=== PATIENT | female | born 1970 | race Caucasian/White ===

== ENCOUNTER 2024-04-24 07:36 | Outpatient (CLI) | payer OTHER, SELFPAY ==
[2024-04-24 08:36] LABS: Basophils Percent Auto 0.6 % (0.2-1.2); Eosinophils Percent Auto 0.8 % (0-4.4); Hematocrit 40.5 % (37.0-47.0); Hemoglobin 13.4 g/dL (12.0-15.0); Immature Granulocyte Absolute 0.01 K/mm3 (0.00-0.031); Immature Granulocyte Percent A 0.2 % (0-0.5); Lymphocytes Absolute Auto 1.78 K/mm3 (0.9-3.2); Lymphocytes Percent Auto 34.8 % (18.3-44.2); Mean Corpuscular HGB Conc 33.1 g/dl (32-36); Mean Corpuscular Hemoglobin 30.3 pg (26-34); Mean Corpuscular Volume 91.6 fl (80-100); Mean Platelet Volume 11.4 fl (7.4-10.4); Monocytes Absolute Auto 0.3 K/mm3 (0.1-0.6); Monocytes Percent Auto 6.7 % (2.6-8.5); Neutrophils Absolute Auto 2.9 K/mm3 (1.3-6.7); Neutrophils Percent Auto 56.9 % (45.5-73.1); Platelet Count Result 232 k/mm3 (150-375); Red Blood Count 4.42 M/mm3 (4.2-5.4); Red Cell Distribution Width 13.3 % (11.5-14.5); White Blood Count 5.1 K/mm3 (4.5-10.0)
[2024-04-24 08:45] LABS: Alanine Aminotransferase 21 U/L (6-35); Albumin Level 4.3 g/dL (3.5-5.1); Alkaline Phosphatase 80 U/L (38-126); Aspartate Amino Transferase 27 U/L (14-36); Bilirubin,Total 0.3 mg/dL (0.2-1.3); Blood Urea Nitrogen 18 mg/dL (7-17); Carbon Dioxide 28 mmol/L (22-30); Chloride 97 mmol/L (98-107); Cholesterol 165 mg/dL (0-200); Estimated Glomerular Filt Rate > 60; Glucose 90 mg/dL (65-110); HDL Direct 44 mg/dL; Potassium 3.8 mmol/L (3.4-5.0); Triglycerides 177 mg/dL (<150)
[2024-04-24 08:55] LABS: LDL Cholesterol Direct 85 mg/dL
[2024-04-24 09:18] LABS: Hemoglobin A1C 5.4 % (<5.7)
[2024-04-24 09:20] LABS: Anion Gap 14 mmol/L (4-12); Sodium 139 mmol/L (137-145)
[2024-04-24 09:39] LABS: Vitamin D 25 Hydroxy 31.2 ng/mL
[2024-04-24 09:52] LABS: Thyroid Stimulating Hormone Reflex 0.777 uIU/mL (0.465-4.68)
== END 2024-04-24 07:37 | disposition home or self-care (01) ==
PROVIDERS: PCP Nurse Practitioner; Visit Provider Nurse Practitioner
DX: Z00.00 Encounter for general adult medical examination without abnormal findings (principal); R42 Dizziness and giddiness; I10 Essential (primary) hypertension; R73.03 Prediabetes; Z13.29 Encounter for screening for other suspected endocrine disorder; E66.01 Morbid (severe) obesity due to excess calories; Z68.41 Body mass index [BMI] 40.0-44.9, adult; Z13.220 Encounter for screening for lipoid disorders
CPT/HCPCS: 36415; 80053; 80061; 82306; 82607; 82746; 83036; 84443; 85025

== ENCOUNTER 2024-08-30 02:00 | Emergency (ER) | payer OTHER, SELFPAY ==
[2024-08-30 02:05] VITALS: BP 140/93; PULSE 100; RESP 22; TEMP 36.4; O2SAT 100
[2024-08-30 02:15] VITALS: BP 129/62; PULSE 80
[2024-08-30 02:16] VITALS: BP 126/84; PULSE 85
[2024-08-30] MEDS: ONDANSETRON INJ 4 MG/2 ML VIAL IV PUSH (02:22)
[2024-08-30] MEDS: SODIUM CHLORIDE 0.9% IV 1,000 ML 999 ML IV CONT ×2 (02:22→03:02)
--- NOTE | 2024-08-30 02:26 | PC.NURSE ---
Patient wristband would not scan but patient name and birthday verified before meds were given. Patient did also request a BSC. BSC brought to room and patient able to use BSC without assist. Call light within reach.
[2024-08-30 02:29] LABS: Basophils Absolute Auto 0.1 K/mm3 (0.0-0.1); Basophils Percent Auto 0.4 % (0.2-1.2); Eosinophils Absolute Auto 0.1 K/mm3 (0-0.3); Eosinophils Percent Auto 0.6 % (0-4.4); Hematocrit 47.3 % (37.0-47.0); Hemoglobin 15.8 g/dL (12.0-15.0); Immature Granulocyte Absolute 0.06 K/mm3 (0.00-0.031); Immature Granulocyte Percent A 0.4 % (0-0.5); Lymphocytes Absolute Auto 2.09 K/mm3 (0.9-3.2); Lymphocytes Percent Auto 12.3 % (18.3-44.2); Mean Corpuscular HGB Conc 33.4 g/dl (32-36); Mean Corpuscular Hemoglobin 30.2 pg (26-34); Mean Corpuscular Volume 90.3 fl (80-100); Mean Platelet Volume 11.2 fl (7.4-10.4); Monocytes Absolute Auto 0.7 K/mm3 (0.1-0.6); Monocytes Percent Auto 4.2 % (2.6-8.5); Neutrophils Percent Auto 82.1 % (45.5-73.1); Platelet Count Result 308 k/mm3 (150-375); Red Blood Count 5.24 M/mm3 (4.2-5.4); Red Cell Distribution Width 14.1 % (11.5-14.5)
[2024-08-30 02:39] LABS: Alanine Aminotransferase 18 U/L (6-35); Albumin Level 4.8 g/dL (3.5-5.1); Alkaline Phosphatase 117 U/L (38-126); Anion Gap 17 mmol/L (4-12); Aspartate Amino Transferase 26 U/L (14-36); Bilirubin,Total 0.8 mg/dL (0.2-1.3); Blood Urea Nitrogen 21 mg/dL (7-17); Calcium 9.7 mg/dL (8.4-10.2); Carbon Dioxide 20 mmol/L (22-30); Chloride 105 mmol/L (98-107); Estimated CRCL calculation 90 ml/min; Estimated Glomerular Filt Rate > 60; Glucose 141 mg/dL (65-110); Lipase 69 U/L (23-300); Potassium 4.5 mmol/L (3.4-5.0); Sodium 142 mmol/L (137-145)
--- NOTE | 2024-08-30 03:01 | ED.GENADULT ---
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 Denies any recent illness including any URI symptoms, body aches, fevers or chills. She also denying any abdominal pain. No additional symptoms or concerns at this time. Related Data Allergies Allergy/AdvReac Type Severity Reaction Status Date / Time Sulfa (Sulfonamide Allergy Intermediate Hives Verified 08/30/24 02:12 Antibiotics) carbamazepine (From Tegretol) AdvReac Intermediate Other Verified 08/30/24 02:13 topiramate (From Topamax) AdvReac Intermediate Other Verified 08/30/24 02:13 nortriptyline AdvReac Unknown Verified 08/30/24 02:13 Review of Systems Review of Systems: All systems are reviewed and are negative unless stated otherwise in the HPI. Exam Narrative: General: Alert, awake, afebrile, in no acute distress. HEENT: PERRL, no rhinorrhea, no post nasal drip, oropharynx clear. Neck: Trachea midline, no JVD, no lymphadenopathy. Cardiovascular: Regular rate and rhythm, no murmurs, rubs or gallops, no peripheral edema. Respiratory: Clear to auscultation bilaterally, no tachypnea, no wheezing, no rhonchi, no rubs, no respiratory distress. Abdomen: Soft, nontender, nondistended, no rebound, no guarding, no peritoneal signs. Musculoskeletal: No joint swelling or deformity, normal muscle tone. Skin: No rashes or petechia, no signs of infection. Psychiatric: Alert and oriented, normal behavior and judgment for situation. Neurological: Alert and oriented to person, place, and time. Follows all commands. No focal deficits, speech is clear and fluent. Course Vital Signs Vital signs: Vital Signs Temperature 97.6 F 08/30/24 02:05 Pulse Rate 100 08/30/24 02:05 Respiratory Rate 22 H 08/30/24 02:05 Blood Pressure 140/93 H 08/30/24 02:05 Pulse Oximetry 100 08/30/24 02:05 Oxygen Delivery Room Air 08/30/24 02:05 Temperature 97.6 F 08/30/24 02:05 Pulse Rate 85 08/30/24 02:16 Respiratory Rate 22 H 08/30/24 02:05 Blood Pressure 126/84 08/30/24 02:16 Pulse Oximetry 100 08/30/24 02:05 Oxygen Delivery Room Air 08/30/24 02:05 Medical Decision Making MDM Narrative Medical decision making narrative: The patient was evaluated by myself in the emergency department. History is obtained from patient who is an independent historian and physical exam was performed. External medical records were reviewed at this time. IV was established and pertinent tests were ordered. Patient was administered 4 mg IV Zofran and 2 L IV fluid bolus with normal saline. Laboratory results obtained revealing a leukocytosis of 17, otherwise unremarkable. Viral swabs negative for COVID/RSV/influenza. Differential diagnosis considerations include gastroenteritis, acute viral syndrome, food poisoning, dehydration, electrolyte derangements. Comorbidities impacting this visit include none. I have evaluated and discussed social determinants of health with the patient that could potentially impact subsequent diagnosis and treatment plans. On repeat assessment of the patient, reevaluation revealed that the patient is doing well and is in no acute distress. Patient symptoms have improved since she arrived to our emergency department. Repeat vital signs were all reviewed and noted to be stable. Differential diagnosis and treatment plan were discussed with the patient at bedside. Patient agrees with discussion and after shared medical decision making agrees with discharge. All questions were answered to the patient's satisfaction. Patient will follow up with her PCP in 3-5 days. Script for Zofran was sent to patient's pharmacy to to use as needed for nausea/vomiting. Patient was provided with strict return precautions and instructed to return to the emergency department if any new or worsening symptoms develop. The patient was discharged in stable condition. Vital Signs Vital Signs: Vital Signs Temperature 97.6 F 08/30/24 02:05 Pulse Rate 100 08/30/24 02:05 Respiratory Rate 22 H 08/30/24 02:05 Blood Pressure 140/93 H 08/30/24 02:05 Pulse Oximetry 100 08/30/24 02:05 Oxygen Delivery Room Air 08/30/24 02:05 Temperature 97.6 F 08/30/24 02:05 Pulse Rate 85 08/30/24 02:16 Respiratory Rate 22 H 08/30/24 02:05 Blood Pressure 126/84 08/30/24 02:16 Pulse Oximetry 100 08/30/24 02:05 Oxygen Delivery Room Air 08/30/24 02:05 Lab Data 08/30/24 02:14 08/30/24 02:14 Labs: Lab Results 08/30/24 Range/Units 02:14 WBC 17.0 H (4.5-10.0) K/mm3 RBC 5.24 (4.2-5.4) M/mm3 Hgb 15.8 H (12.0-15.0) g/dL Hct 47.3 H (37.0-47.0) % MCV 90.3 (80-100) fl MCH 30.2 (26-34) pg MCHC 33.4 (32-36) g/dl RDW 14.1 (11.5-14.5) % Plt Count 308 (150-375) k/mm3 MPV 11.2 H (7.4-10.4) fl Immature Gran % (Auto) 0.4 (0-0.5) % Neut % (Auto) 82.1 H (45.5-73.1) % Lymph % (Auto) 12.3 L (18.3-44.2) % Barbour % (Auto) 4.2 (2.6-8.5) % Eos % (Auto) 0.6 (0-4.4) % Baso % (Auto) 0.4 (0.2-1.2) % Lymph # (Auto) 2.09 (0.9-3.2) K/mm3 Barbour # (Auto) 0.7 H (0.1-0.6) K/mm3 Eos # (Auto) 0.1 (0-0.3) K/mm3 Baso # (Auto) 0.1 (0.0-0.1) K/mm3 Abs Immat Gran (auto) 0.06 H (0.00-0.031) K/mm3 Absolute Neuts (auto) 14.0 H (1.3-6.7) K/mm3 Absolute Nucleated RBC 0.000 (0.0-0.012) K/mm3 Nucleated RBC % 0.0 (0.0-0.2) % Sodium 142 (137-145) mmol/L Potassium 4.5 (3.4-5.0) mmol/L Chloride 105 (98-107) mmol/L Carbon Dioxide 20 L (22-30) mmol/L Anion Gap 17 H (4-12) mmol/L BUN 21 H (7-17) mg/dL Creatinine 0.81 (0.7-1.0) mg/dL Estim Creat Clear Calc 90 ml/min Estimated GFR > 60 (59 - ) Glucose 141 H (65-110) mg/dL Calcium 9.7 (8.4-10.2) mg/dL Magnesium 2.0 (1.6-2.3) mg/dL Total Bilirubin 0.8 (0.2-1.3) mg/dL AST 26 (14-36) U/L ALT 18 (6-35) U/L Alkaline Phosphatase 117 (38-126) U/L Total Protein 8.0 (6.3-8.2) g/dL Albumin 4.8 (3.5-5.1) g/dL Lipase 69 (23-300) U/L Influenza A (RT-PCR) Negative (Negative) Influenza B (RT-PCR) Negative (Negative) RSV (RT-PCR) Negative (Negative) SARS-CoV-2 RNA (RT-PCR) Negative (Negative) Discharge Plan Discharge Clinical Impression: Food poisoning, Leukocytosis Patient Disposition: Home, Self-Care Condition: Improved Instructions: Food Poisoning (ED) Additional Instructions: Please follow-up with your family doctor within the next 3-5 days. Return to the emergency department if any new or worsening symptoms develop. Take the prescribed Zofran as needed for nausea/vomiting. Your white blood cell count was elevated today at 17 which could be reactive, however, this should be rechecked with your primary care physician. Patient Language: Setswana Prescriptions: New ondansetron 4 mg tablet,disintegrating 4 mg PO Q8H PRN (Reason: nausea and vomiting) Qty: 10 0RF Follow-up/Referrals: Edison,Ludivina Carlos NP [Primary Care Provider] - 3 Days Time of Disposition: 03:22
[2024-08-30 03:05] LABS: Influenza A QL RT-PCR Negative (Negative); Influenza B QL RT-PCR Negative (Negative); RSV RNA, RT-PCR Negative (Negative); SARS-CoV-2 RNA PCR Negative (Negative)
--- NOTE | 2024-08-30 03:07 | PC.NURSE ---
Patient given ice chips upon request and for PO challenge.
[2024-08-30 03:53] VITALS: BP 126/84; PULSE 85; RESP 18; O2SAT 100
--- OUTSIDE RECORDS SUMMARY | 2024-09-02 11:18 | XMS_ITS | Patient Health Summary ---
Author Organization [facility] Address [address] [place] [address] Care Team Providers Care Nursing Home Director Name Role Phone Raheem Sanchez MD Unavailable [phone] Ludivina Hogan Primary Care Provider Note from [facility],non-owned Affiliates and Associated Physician Practices is amultiple site organization consisting of ambulatory clinics and hospital sitesin [place], [place], [place] and [place]. This disclosure is being madepursuant to the Care Everywhere program and may not contain all information available regarding this patient. Last updated 18.[facility] Allergies * Cefdinir(Diarrhea) * Nortriptyline * Sulfa Drugs * Carbamazepine(Dizziness) * Topiramate Medications * Be aware that medications may not be up to date on this document. Alwaysverify current medications with the patient. * rizatriptan (MAXALT) 10 MG tablet Take 10 mg by mouth once as needed for Migraine. * lamoTRIgine (LAMICTAL) 100 MG tablet(Started 03/26/2010) Take 100 mg by mouth once daily * escitalopram (LEXAPRO) 10 MG tablet Take 20 mg by mouth once daily * lisinopril (PRINIVIL; ZESTRIL) 10 MG tablet(Started 10/02/2017) Take 20 mg by mouth once daily for blood pressure 3 refills left * propranolol (INDERAL) 20 MG tablet(Started 04/20/2018) Take 20 mg by mouth * psvkujkvku-jvvkclpoorwlu-hxvgdvbw (FIORICET) 50-300-40 MG capsule(Started 10/01/2017) Take 1 capsule by mouth * baclofen (LIORESAL) 10 MG tablet(Started 07/11/2018) Take 10 mg by mouth 3 times daily as needed 3 refills left * ALPRAZolam (XANAX) 0.5 MG tablet(Started 09/16/2018) TAKE 1 TABLET BY MOUTH AT EVERY BEDTIME NEEDED FOR SLEEP * raNITIdine (ZANTAC) 150 MG capsule(Started 09/23/2018) TAKE 1 CAPSULE (150 MG TOTAL) BY MOUTH 2 (TWO) TIMES DAILY FOR 30 DAYS. 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 Migraine 07/11/2008 Resolved Problems Problem Noted Date Diagnosed Date Resolved Date Screening for condition 07/11/200804/11 Seizure disorder 07/11/2008 04/29/2009 Social History Tobacco Use Types Packs/Day Years Used Date Smoking Tobacco: Never Smokeless Tobacco: Never Sex and Gender Information Value Date Recorded Sex Assigned at Not on file Gender Identity Not on file Sexual Orientation Not on file Last Filed Vital Signs Vital Sign Reading Time Taken Comments Blood Pressure 134/84 10/30/2018 10:53 AM CDT Pulse - - Temperature - - Respiratory Rate - - Oxygen Saturation - - Inhaled Oxygen Concentration - - Weight 118.8 kg (262 lb) 10/30/2018 10:53 AM CDT Height 170.2 cm (5' 7 ) 10/30/2018 10:53 AM CDT Body Mass Index 41.04 10/30/2018 10:53 AM CDT Procedures * PAP IG LB RFLX HPV HR ASCU RFLX 16,18(Performed 10/30/2018) Performed for Pap smear, as part of routine gynecological examination * PAP IG LB RFLX HPV HR ASCU RFLX 16,18(Performed 09/06/2016) Performed for Well woman exam * HPV DNA PROBE HIGH RISK(Performed 09/06/2016) Performed for Well woman exam * PAP IG LB RFLX HPV HR ASCU RFLX 16,18(Performed 08/18/2015) Performed for Well female exam with routine gynecological exam * MAMMOGRAPHY ORDER(Performed 08/15/2015) * MAMMO BILAT SCREENING(Performed 08/15/2014) * PAP IG LB RFLX HPV HR ASCU RFLX 16,18(Performed 06/22/2014) Performed for Routine gynecological examination * PAP IG LB RFLX HPV HR ASCU RFLX 16,18(Performed 06/19/2013) Performed for Routine gynecological examination * PAP IG LB RFLX HPV HR ASCU RFLX 16,18(Performed 06/05/2012) Performed for Routine gynecological examination * MAMMO BILAT SCREENING(Performed 06/03/2012) Performed for Breast cancer screening * PAP IG LB RFLX HPV HR ASCU RFLX 16,18(Performed 05/31/2011) Performed for Routine gynecological examination * PAP IG RFLX HPV ASCU(Performed 04/17/2010) Performed for Routine Gynecological Examination * MAMMO BILAT SCREENING(Performed 06/01/2009) * PAP IG RFLX HPV ASCU(Performed 04/29/2009) Performed for Routine Gynecological Examination * PAP IG RFLX HPV ASCU(Performed 04/28/2008) Results * PAP IG LB RFLX HPV HR ASCU RFLX 16,18 (10/30/2018 11:08 AM CDT) Only the most recent of7 resultswithin the time period is included. Diagnosis [facility] INSURANCE BILL Comment:NEGATIVE FOR INTRAEP ITHELIAL LESION OR MALIGNANCY. Specimen Adequacy [facility] INSURANCE BILL Comment:Satisfactory for arabella luation. No endocervical component is identified. Clinician Provided ICD10 [facility] INSURANCE BILL Comment:Z01.419 Performed by [facility] INSURANCE BILL Comment:Leonardo Rossi totechnologist (ASCP) Comment . [facility] INSURANCE BILL Note [facility] INSURANCE BILL Comment: The Pap smear is a screening test designed to aid in the detection of premalignant and malignant conditions of the uterine cervix. ??It is not a diagnostic procedure and should not be used as the sole means of detecting cervical cancer. ??Both false-positive and false-negative reports do occur. ? . IGLBP CPT Code Automation [facility] INSURANCE BILL Comment: This liquid based ThinPrep(R) pap test was screened with the use of an image guided system. Note [facility] INSURANCE BILL Comment: The HPV DNA reflex criteria were not met with this specimen result therefore, no HPV testing was performed. ? . PART OF UTERINE CERVIX / Unknown 10/30/2018 11:08 AM CDT 10/30/2018 Narrative [facility] INSURANCE BILL - 11/03/2018 1:10 PM CDT No. of containers..01 ThinPrep Vial Resulting Agency Comment [facility] [address] ??[place] [id number] Raheem Sanchez MD LAB - PATHOLOGY/CYTO LOGY ORDERABLES [facility] INSURANCE BILL [address] [place] [address] * HPV DNA PROBE HIGH RISK (09/06/2016 11:29 AM SALES TECHNICIAN HOME THEATER) Human papillomavirus High Risk Negative Negative [facility] INSURANCE BILL Comment: This high-risk HPV test detects thirteen high-risk types (16/18/31/33/35/39/45/51/52/56/58/59/68) without differentiation. ?. 09/06/2016 11:2 9 AM SALES TECHNICIAN HOME THEATER 09/06/2016 Narrative [facility] INSURANCE BILL - 09/11/2016 5:11 PM SALES TECHNICIAN HOME THEATER No. of containers..01 CYTYC Thin Prep Vial Resulting Agency Comment [facility] [place] ??[place]ACK [id number] Raheem Sanchez MD LAB - MICROBIOLOGY O RDERABLES [facility] INSURANCE BILL [address] [place] [address] * MAMMOGRAPHY ORDER (08/15/2015) Anatomical Region Laterality Modality Other Scanned Document MAMMO ORDERABLES * MAMMO SCREENING DIGITAL IMAGE BILAT (08/15/2014) Only the most recent of3 resultswithin the time period is included. Anatomical Region Laterality Modality Breast Bilateral Other Raheem Sanchez MD MAMMO ORDERABLES * PAP SMEAR IG RFLX HPV ASCU (PO REF LAB) (04/17/2010 2:56 PM CDT) Only the most recent of3 resultswithin the time period is included. Diagnosis [facility] ACCOUNT BILL Comment:NEGATIVE FOR INTRAEP ITHELIAL LESION AND MALIGNANCY. Specimen Adequacy [facility] ACCOUNT BILL Comment: Satisfactory for evaluation. ??Endocervical and/or squamous metaplastic cells (endocervical component) are present. Clinician Provided ICD9 [facility] ACCOUNT BILL Comment:V72.31 ; Routine spring repairer helper hand ecological examination Performed by [facility] ACCOUNT BILL Comment:Sheron Cristina Cytot echnologist (ASCP) Comment . [facility] ACCOUNT BILL Note [facility] ACCOUNT BILL Comment: The Pap smear is a screening test designed to aid in the detection of premalignant and malignant conditions of the uterine cervix. ??It is not a diagnostic procedure and should not be used as the sole means of detecting cervical cancer. ??Both false-positive and false-negative reports do occur. ? . IGLBP CPT Code Automation [facility] ACCOUNT BILL Comment: This liquid based ThinPrep(R) pap test was screened with the use of an image guided system. Reflex [facility] ACCOUNT BILL Comment: The HPV DNA reflex criteria were not met with this specimen result therefore, no HPV testing was performed. ? . MICROSCOPIC CYTOLOGIC EXAMINATION OF SMEAR OF SPECIMEN FROM FEMALE GENITAL TRACT PREPARED USING PAPANICOLAOU TECHNIQUE / Unknown 04/17/2010 2:56 PM CDT 04/17/2010 9:11 PM CDT Narrative [facility] ACCOUNT BILL - 04/18/2010 8:09 PM CDT Source.............Cervical;Endocervical No. of containers..01 CYTYC Thin Prep Vial Resulting Agency Comment [facility] [place] [address] [facility] ??[place] [id number] Raheem Sanchez MD LAB - PATHOLOGY/CYTO LOGY ORDERABLES [facility] ACCOUNT BILL Care Teams Nursing Home Director Relationship Specialty Start Date End Date Raheem Sanchez MD PCP - OBGYN 07/11/08 Ludivina Hogan PCP - General Nurse Practitioner 10/30/18
--- OUTSIDE RECORDS SUMMARY | 2024-09-02 11:18 | XMS_ITS | Clinical Summary ---
Author Organization [facility] Address [address] [place] [address] Care Team Providers Care Job Service Consultant Name Role Phone Raheem Sanchez MD Unavailable [phone] Ludivina Hogan Primary Care Provider [phone] Source Comments [facility],non-owned Affiliates and Associated Physician Practices is amultiple site organization consisting of ambulatory clinics and hospital sitesin [place], [place], [place] and [place]. This disclosure is being madepursuant to the Care Everywhere program and may not contain all information available regarding this patient. Last updated 18.[facility] Allergies Active Allergy Reactions Criticality Noted Date Comments Cefdinir Diarrhea 06/22/2014 Nortriptyline 08/18/2015 Sulfa Drugs 07/11/2008 Carbamazepine Dizziness 06/22/2014 Topiramate 06/22/2014 Medications * Be aware that medications may not be up to date on this document. Alwaysverify current medications with the patient. Medication Sig Dispensed Refills Start Date End Date Status rizatriptan (MAXALT) 10 MG tablet Take 10 mg by mouth once as needed for Migraine. Active lamoTRIgine (LAMICTAL) 100 MG tablet Take 100 mg by mouth once daily 03/26/2010 Active escitalopram (LEXAPRO) 10 MG tablet Take 20 mg by mouth once daily Active lisinopril (PRINIVIL; ZESTRIL) 10 MG tablet Take 20 mg by mouth once daily for blood pressure 3 10/02/2017 Active propranolol (INDERAL) 20 MG tablet Take 20 mg by mouth 04/20/2018 Activ e butalbital-acetami nophen-caffeine (FIORICET) 50-300-40 MG capsule Take 1 capsule by mouth 10/01/2017 Active baclofen (LIORESAL) 10 MG tablet Take 10 mg by mouth 3 times daily as needed 3 07/11/2018 Active ALPRAZolam (XANAX) 0.5 MG tablet TAKE 1 TABLET BY MOUTH AT EVERY BEDTIME NEEDED FOR SLEEP 0 09/16/2018 Active raNITIdine (ZANTAC) 150 MG capsule TAKE 1 CAPSULE (150 MG TOTAL) BY MOUTH 2 (TWO) TIMES DAILY FOR 30 DAYS. 3 09/23/2018 Active ondansetron, disintegrating, (ZOFRAN ODT) 4 MG tablet Take 4 mg by mouth 09/16/2018 Active HYDROcodone-acetam inophen (NORCO) 5-325 MG tablet Take 1 tablet by mouth 05/13/2018 Active levonorgestrel-eth inyl estradiol (ALESSE; LEVLITE; AVIANE; LUTERA; LESSINA; SRONYX) 0.1-20 MG-MCG tabletIndications: Dysfunctional Uterine Bleeding Take 1 tablet by mouth once daily Reasons: Dysfunctional Bleeding From the Uterus 3 packet 3 10/30/2018 Active Active Problems Problem Noted Date Diagnosed Date Hypertension 10/01/2017 Uterine myoma 05/31/2011 Overview (05/31/2011): Small fibroid seen during [facility] Migraine 07/11/2008 Resolved Problems Problem Noted Date Diagnosed Date Resolved Date Screening for condition 07/11/200804/11 Overview (05/11/2015): Adult Abstraction Problem List Screening Pap Smear: Result: 04/27/2008 Mammogram: Result: Not avail in chart Seizure disorder 07/11/2008 04/29/2009 Family History Medical History Relation Name Comments Hypertension Father Relation Name Status Comments Father Social History Tobacco Use Types Packs/Day Years [...] Mass Index 41.04 10/30/2018 10:53 AM CDT Plan of Treatment Health Maintenance Due Date Last Done Comments COLOGUARD (AGES 45-75) - COLON CA SCREENING 1972 COLON MONITORING 1972 COLONOSCOPY - COLON CA SCREENING 1972 CT COLONOGRAPHY - COLON CA SCREENING 1972 Colorectal Cancer Screening 1972 FIT - COLON CA SCREENING 1972 FLEX SIG - COLON CA SCREENING 1972 LIPID TESTING 1972 HIV SCREENING 1987 HEPATITIS C SCREENING 05/26/1990 DTAP/TDAP/TD VACCINES (1 - Tdap) 1991 HEPATITIS B VACCINE (1 of 3 - 19+ 3-dose series) 1991 MAMMOGRAM 08/15/2017 08/15/2015, 12/2014, 06/03/2012, Additional history exists SCREENING FOR DIABETES 10/30/2018 PAP with HPV 09/06/2021 09/06/2016 PNEUMOCOCCAL VACCINE 50+ (1 of 1 - PCV) 2022 ZOSTER VACCINE (1 of 2) 2022 COVID-19 VACCINE (1 - 2023- season) 2024 INFLUENZA VACCINE (#1) 2024 05/11/2018 DEPRESSION SCREENING 08/11/2024 HIB VACCINE Aged Out No longer eligi ble based on patient's age to complete this topic HPV VACCINE Aged Out No longer eligi ble based on patient's age to complete this topic MENINGOCOCCAL (Group B) VACCINE Aged Out No longer eligible based on patient's age to complete this topic MENINGOCOCCAL VACCINE Aged Out No june al eligible based on patient's age to complete this topic PNEUMOCOCCAL VACCINE Aged Out No long er eligible based on patient's age to complete this topic Procedures Procedure Name Priority Date/Time Associated Diagnosis Comments HPV DNA PROBE HIGH RISK Routine 09/06/2016 11:29 AM BUTTERMAKER HELPER Well woman exam MAMMOGRAPHY ORDER Routine 08/15/2015 from Last 3 Months or Most Recently Relevant to Health Maintenance Results * HPV DNA PROBE HIGH RISK (09/06/2016 11:29 AM BUTTERMAKER HELPER) Human papillomavirus High Risk Negative Negative [facility] INSURANCE BILL Comment: This high-risk HPV test detects thirteen high-risk types (16/18/31/33/35/39/45/51/52/56/58/59/68) without differentiation. ?. 09/06/2016 11:2 9 AM BUTTERMAKER HELPER 09/06/2016 Narrative [facility] INSURANCE BILL - 09/11/2016 5:11 PM BUTTERMAKER HELPER No. of containers..01 CYTYC Thin Prep Vial Resulting Agency Comment [facility] [address] [place] ??[place] [id number] Raheem Sanchez MD [facility] Performing Organization Address City/State/[facility] Co de Phone Number [facility] INSURANCE BILL [address] [place] [address] * MAMMOGRAPHY ORDER (08/15/2015) Anatomical Region Laterality Modality Other Scanned Document MAMMO ORDERABLES from Last 3 Months or Most Recently Relevant to Health Maintenance Care Teams Job Service Consultant Relationship Specialty Start Date End Date Raheem Sanchez MD PCP - OBGYN 07/11/08 MiloLudivina henry PCP - General Nurse Practitioner 10/30/18
--- OUTSIDE RECORDS SUMMARY | 2024-09-02 11:18 | XMS_ITS | Referral Summary ---
Author Organization [facility] Address [address] [place] [address] Care Team Providers Care Conditioning Coach Name Role Phone Raheem Sanchez MD Unavailable [phone] Ludivina Hogan Primary Care Provider [phone] Source Comments [facility],non-owned Affiliates and Associated Physician Practices is amultiple site organization consisting of ambulatory clinics and hospital sitesin [place], [place], [place] and [place]. This disclosure is being madepursuant to the Care Everywhere program and may not contain all information available regarding this patient. Last updated 18.[facility] Allergies Active Allergy Reactions Criticality Noted Date [...] avail in chart Seizure disorder 07/11/2008 04/29/2009 Social History Tobacco [...] 10/30/2018 10:53 AM CDT Plan of Treatment Not on file Procedures Procedure Name Priority Date/Time Associated Diagnosis Comments HPV DNA PROBE HIGH RISK Routine 09/06/2016 11:29 AM PHARMACY DELIVERY DRIVER Well woman exam MAMMOGRAPHY ORDER Routine 08/15/2015 from Last 3 Months or Most Recently Relevant to Health Maintenance Results * HPV DNA PROBE HIGH RISK (09/06/2016 11:29 AM PHARMACY DELIVERY DRIVER) Human papillomavirus High Risk Negative Negative [facility] INSURANCE BILL Comment: This high-risk HPV test detects thirteen high-risk types (16/18/31/33/35/39/45/51/52/56/58/59/68) without differentiation. ?. 09/06/2016 11:2 9 AM PHARMACY DELIVERY DRIVER 09/06/2016 Narrative [facility] INSURANCE BILL - 09/11/2016 5:11 PM PHARMACY DELIVERY DRIVER No. of containers..01 CYTYC Thin Prep Vial Resulting Agency Comment [facility] [address] ??Harry [place] [id number] Raheem Sanchez MD LAB - MICROBIOLOGY O RDERABLES Performing Organization Address City/State/[facility] Co de Phone Number [facility] INSURANCE BILL [address] [place] [address] * MAMMOGRAPHY ORDER (08/15/2015) Anatomical Region Laterality Modality Other Scanned Document MAMMO ORDERABLES from Last 3 Months or Most Recently Relevant to Health Maintenance Care Teams Conditioning Coach Relationship Specialty Start Date End Date Raheem Sanchez MD PCP - OBGYN 07/11/08 Ludivina Hogan PCP - General Nurse Practitioner 10/30/18
--- OUTSIDE RECORDS SUMMARY | 2024-09-02 11:19 | XMS_ITS | Encounter Summary ---
Author Organization [facility] Address [address] [place] [address]. [place] [address] [place] [address] Care Team Providers Care Hands Assembler Name Role Phone Ludivina Hogan KADEN Primary Care Provider [phone] Zay Altman MD Unavailable [phone] Akbar Bailey MD Unavailable [phone] Encounter Details Date Type Department Care Team (Late st Contact Info) Description 04/06/2020 Prep for Procedure [facility] [address] [place] [address] Adilson Nguyen MD [address] [place], [place] [address] Social History Tobacco Use Types Packs/Day Years Used Date Smoking Tobacco: Never Smokeless Tobacco: Never Alcohol Use Standard Drinks/Week Comments Yes 0 (1 standard drink = 0.6 oz pure alcohol) occasional, infrequent glass of wine PHQ-2 Answer Date Recorded PHQ-2 Score 0 03/20/2020 Education Answer Date Recorded What is the highest level of school you have completed or the highest degree you have received? Associate degree: academic program 06/09/2018 Comments No Sex and Gender Information Value Date Recorded Sex Assigned at Female 08/24/2024 8:58 AM WILDLAND FIREFIGHTER Legal Sex Female 7:09 PM CDT Gender Identity Not on file Sexual Orientation Not on file Occupation Industry Job Start Date Job End Date Registered Nurse Not on file Not on file Not on file COVID-19 Exposure Response Date Recorded In the last month, have you been in contact with someone who was confirmed or suspected to have Coronavirus / COVID-19? Yes 04/06/2020 8:14 AM CDT documented as of this encounter Functional Status * RETIRED Are you deaf or do you have serious difficulty hearing Answer Date of Assessment Author Status No 12/17/2018 12:38 PM CDT Acti ve * RETIRED Are you blind or do you have serious difficulty seeing, even when wearing glasses? Answer Date of Assessment Author Status No 12/17/2018 12:38 PM CDT Acti ve * Do you have serious difficulty walking or climbing stairs? Answer Date of Assessment Author Status Yes 12/17/2018 12:38 PM CDT Estefania Alicia RN Active * Do you have difficulty dressing or bathing? Answer Date of Assessment Author Status No 12/17/2018 12:38 PM CDT Estefania Alicia RN Active * Because of a physical, mental, or emotional condition, do you have difficulty doing errands alone such as visiting a doctor's office or shopping? Answer Date of Assessment Author Status No 12/17/2018 12:38 PM CDT Estefania Alicia RN Active documented as of this encounter Mental Status * Because of a physical, mental, or emotional condition, do you have serious difficulty concentrating, remembering, or making decisions? Answer Entry Date Author Status No 12/17/2018 12:40 PM BRET Estefania Alicia RN Active documented in this encounter Plan of Treatment Upcoming Encounters Date Type Department Care Team (Late st Contact Info) Description 08/30/2025 8:30 AM WILDLAND FIREFIGHTER Office Visit [facility], [facility] [address] [place], [place] [id number] Seymour Pino MD [facility]. [facility] [address] [place], [place] [id number] documented as of this encounter Results * PRE-SURGICAL/PRE-PROCEDURE CORONAVIRUS (COVID 19) (04/08/2020 12:48 PM CDT) CORONAVIRUS SARS COV 2 PCR (RESP) NOT DETECTED NOT DETECTED 04/09/2020 3:06 PM CDT [facility] Comment: A Not Detected (negative) test result for this test means that SARS- CoV-2 RNA was not present in the specimen above the limit of detection. A negative result does not rule out the possibility of COVID-19 and should not be used as the sole basis for treatment or patient management decisions. ??If COVID-19 is still suspected, based on exposure history together with other clinical findings, re-testing should be considered in consultation with public health authorities. Laboratory test results should always be considered in the context of clinical observations and epidemiological data in making a final diagnosis and patient management decisions. Please review the Fact Sheets and FDA authorized labeling available for health care providers and patients using the following websites: https://www.iVideosongs.Plinga/home/Covid-19/HCP/NAAT/fact-sheet2 https://www.iVideosongs.Plinga/home/Covid-19/Patients/NAAT/ fact-sheet2 This test has been authorized by the FDA under an Emergency Use Authorization (EUA) for use by authorized laboratories. Due to the current public health emergency, [facility] is receiving a high volume of samples from a wide variety of swabs and media for COVID-19 testing. In order to serve patients during this public health crisis, samples from appropriate clinical sources are being tested. Negative test results derived from specimens received in non-commercially manufactured viral collection and transport media, or in media and sample collection kits not yet authorized by FDA for COVID-19 testing should be cautiously evaluated and the patient potentially subjected to extra precautions such as additional clinical monitoring, including collection of an additional specimen. Methodology: ??Nucleic Acid Amplification Test (NAAT) includes PCR or TMA Additional information about COVID-19 can be found at the [facility] website: www.BuyWithMe.Plinga/Covid19. Test performed at [facility] [place] [address] [place], [place] ??[address] Director: FRITZ CHEN DO,MPH NASOPHARYNGEAL SWAB / Unknown 04/08/2020 12:48 PM CDT us Adilson Nguyen MD MICROBIOLOGY - GENERAL ORDERABL ES Final Result [facility] [address] [place] [address], documented in this encounter Visit Diagnoses Diagnosis Preop examination- Primary Preoperative examination, unspecified documented in this encounter Additional Health Concerns Infection Onset Date Last Indicated Resolved Time COVID-19 Rule Out 04/08/2020 04/08/2020 04/09/2020 3:06 PM CDT COVID-19 Rule Out 06/09/2020 06/09/2020 06/12/2020 3:50 PM WILDLAND FIREFIGHTER COVID-19 Rule Out 04/10/2021 04/10/2021 04/10/2021 10:13 AM CDT COVID-19 Rule Out 04/10/2021 04/10/2021 04/11/2021 1:15 PM CDT documented as of this encounter Care Teams Hands Assembler Relationship Specialty Start Date End Date Ludivina Hogan APNP [address] [place] [address] PCP - General NURSE PRACTITIONER 10/07/17 Zay Altman MD [address] [place] [address] Surgeon NEUROLOGICAL SURGERY 12/09/18 Akbar Bailey MD [address] [place] [address] Consulting Physician Neurology Psychiatry 12/09/18 documented as of this encounter
--- OUTSIDE RECORDS SUMMARY | 2024-09-02 11:19 | XMS_ITS | Encounter Summary ---
Author Organization [facility] Address [facility] [facility] [place] [address] [place] [address] Care Team Providers Care Helmet Hat Puncher Name Role Phone Ludivina Hogan Primary Care Provider [phone] Zay Altman MD Unavailable [phone] Akbar Bailey MD Unavailable [phone] Encounter Details Date Type Department Care Team (Latest Contact Info) Description 06/16/[address] [facility] , Kathrine Capone MD Social History Tobacco Use Types Packs/Day Years Used Date Smoking Tobacco: Never Smokeless Tobacco: Never Alcohol Use Standard Drinks/Week Comments Yes 0 (1 standard drink = 0.6 oz pur e alcohol) occasional Education Answer Date Recorded What is the highest level of school you have completed or the highest degree you have received? Associate degree: academic program 06/09/2018 Comments No Sex and Gender Information Value Date Recorded Sex Assigned at Female 08/24/2024 8:58 AM AUTO TECHNICIAN MECHANIC Legal Sex Female 7:09 PM CDT Gender Identity Not on file Sexual Orientation Not on file Occupation Industry Job Start Date Job End Date Registered Nurse Not on file Not on file Not on file documented as of this encounter Plan of Treatment Upcoming Encounters Date Type Department Care Team (Late st Contact Info) Description 08/30/2025 8:30 AM AUTO TECHNICIAN MECHANIC Office Visit [facility], [address] [address] Seymour Pino MD [facility]. [facility] [address] [place] [address] documented as of this encounter Visit Diagnoses Not on filedocumented in this encounter Additional Health Concerns Infection Onset Date Last Indicated Resolved Time COVID-19 Confirmed 12/16/2019 12/16/2019 0 12:32 AM CDT COVID-19 Rule Out 12/16/2019 12/16/2019 12/16/2019 11:49 AM CDT COVID-19 Rule Out 04/08/2020 04/08/2020 04/09/2020 3:06 PM CDT COVID-19 Rule Out 06/09/2020 06/09/2020 06/12/2020 3:50 PM AUTO TECHNICIAN MECHANIC COVID-19 Rule Out 04/10/2021 04/10/2021 04/10/2021 10:13 AM CDT COVID-19 Rule Out 04/10/2021 04/10/2021 04/11/2021 1:15 PM CDT documented as of this encounter Care Teams Helmet Hat Puncher Relationship Specialty Start Date End Date Ludivina Hogan APNP [address] [place] [address] PCP - General NURSE PRACTITIONER 10/07/17 Zay Altman MD [address] [place] [address] Surgeon NEUROLOGICAL SURGERY 12/09/18 Akbar Bailey MD [address] [facility] [place] [address] Consulting Physician Neurology Psychiatry 12/09/18 documented as of this encounter
--- OUTSIDE RECORDS SUMMARY | 2024-09-02 11:19 | XMS_ITS | Encounter Summary ---
Author Organization [facility] Address [address] [place] [address]. [place] [address] [place] [address] Care Team Providers Care Stock Preparer Name Role Phone Ludivina Hogan Primary Care Provider [phone] Zay Altman MD Unavailable [phone] Akbar Bailey MD Unavailable [phone] Encounter Details Date Type Department Care Team (Late st Contact Info) Description 12/05/2022 [employer] Message Enc [facility] - [place] [address] [place] [address] Ludivina Hogan APNP [address] [place] [address] Zoey Social History Tobacco Use Types Packs/Day Years Used Date Smoking Tobacco: Never Smokeless Tobacco: Never Comments:na Alcohol Use Standard Drinks/Week Comments Yes 0 (1 standard drink = 0.6 oz pure alcohol) occasional, infrequent glass of wine PHQ-2 Answer Date Recorded PHQ-2 Score - If the patient scores above 3, please move on to questions 3-9 0 2022 Education Answer Date Recorded What is the highest level of school you have completed or the highest degree you have received? Associate degree: academic program 06/09/2018 Comments No Sex and Gender Information Value Date Recorded Sex Assigned at Female 08/24/2024 8:58 AM EPIC APPLICATION COORDINATOR Legal Sex Female 7:09 PM CDT Gender Identity Not on file Sexual Orientation Not on file Occupation Industry Job Start Date Job End Date Registered Nurse Not on file Not on file Not on file documented as of this encounter Functional Status [...] Author Status Yes 12/17/2018 12:38 PM CDT Estfeania Alicia RN Active * Do you have [...] Date Author Status No 12/17/2018 12:40 PM CDT Estefania Alicia RN Active documented in this encounter Progress Notes * Kimberly Milton CMA - 12/05/2022 11:44 AM CDT Noted. documented in this encounter Plan of Treatment Upcoming Encounters Date Type Department Care Team (Late st Contact Info) Description 08/30/2025 8:30 AM EPIC APPLICATION COORDINATOR Office Visit [facility], [place] [address] [place] [address] Seymour Pino MD [facility]. [place] [address] [place] [address] documented as of this encounter Visit Diagnoses Not on filedocumented in this encounter Additional Health Concerns Assessment Noted Time PHQ-9 Depression Total Score: 3 05/30/20 22 2:53 PM CDT documented as of this encounter Care Teams Stock Preparer Relationship Specialty Start Date End Date Ludivina Hogan APNP [address] [place] [address] PCP - General NURSE PRACTITIONER 10/07/17 Zay Altman MD [address] [place] [address] Surgeon NEUROLOGICAL SURGERY 12/09/18 Akbar Bailey MD [address] [place] [address] Consulting Physician Neurology Psychiatry 12/09/18 documented as of this encounter
--- OUTSIDE RECORDS SUMMARY | 2024-09-02 11:19 | XMS_ITS | Patient Health Record ---
Author Organization [facility] Address [address] [facility] [address] [place] [address] Care Team Providers Care Warp Picker Name Role Phone Ludivina Bond Primary Care Provider Unavail able Sarina Rome Unavailable [phone] Dennis Link Unavailable [phone] Billy Thena Unavailable [phone] Allergies Allergen (clinical drug ingredient) Drug/Non Drug Allergy documented on EMR Reaction Allergy Type Onset Date Status nortriptyline Nortriptyline HCl Unknown Drug Allergy Active carbamazepine TEGretol Unknown Drug Allergy Act cassie topiramate Topamax Unknown Drug Allergy Active Substance with sulfonamide structure and antibacterial mechanism of action (substance) Sulfa Antibiotics Unknown Drug Allergy Active Results Component Value Reference Range Notes UDT Reviewed date:03/09/2024 05:31:53 PM Interpretation: Performing Lab: Notes/Report: THC NEG 0 - 50 ng/ml Cocaine NEG 0 - 300 ng/ml Amphetamine NEG 0 - 1000 ng/ml Buprenorphine (BUP) NEG 0 - 10 ng/ml Secobarbital (Bar) NEG 0 - 300 ng/ml Oxazepam (BZO) NEG 0 - 300 ng/ml 4-unawabqpht-2,1-caifdrrl-8,3-diphenylpyrrolidine (SELIN P) NEG 0 - 300 ng/ml Methamphetamine (MET) NEG 0 - 1000 ng/ml Methylenedioxymethamphetamine (MDMA) NEG 0 - 500 ng/ml Morphine (MOP 300/NBA0246) NEG 0 - 300 ng/ml Methadone (MTD) NEG 0 - 300 ng/ml Phencyclidine (PCP) NEG 0 - 25 ng/ml Propoxyphene (PPX) NEG 0 - 300 ng/ml Nortriptyline (TCA) NEG 0 - 1000 ng/ml Oxycodone NEG 0 - 300 ng/ml Reason For Referral No Information Medications Medication SIG (Take, Route, Frequency, Duration) Notes Start Date End Date Status B-12 1000 MCG 1 tablet under the t ongue and allow to dissolve Sublingual Once a day Unknown B-6 100 MG 1 tablet Orally Once a day Unknown Vitamin D2 50 MCG (1999 UT) 1 tablet Orally Once a day Unknown Zinc 50 MG 1 tablet Orally Once a day Unknown Baclofen 10 MG 1 tablet as needed O rally Twice a day Unknown Maxalt 10 MG 1 tablet Orally Once a day Unknown Propranolol HCl 20 MG Oral for 90 Days Active Aviane 0.1-20 MG-MCG 1 tablet Orally Onc e a day Unknown DULoxetine HCl 30 MG Oral for 90 Days Active Loratadine 10 MG 1 tablet Orally Once a day Unknown Alpha Lipoic Acid 200 MG 1 capsule Orall y Once a day Unknown Pregabalin 100 MG Oral for 90 Days Active lamoTRIgine 100 MG Oral for 90 Days Active Magnesium Glycinate 100 MG as directed Orally Unknown Calcium Citrate 950 (200 Ca) MG 1 tablet Orally Once a day Unknown Flaxseed Oil 1000 MG as directed Orally Unknown Amphetamine-Dextroamphet ER 20 MG 1 capsule in the morning Orally Once a day for 30 days 07/23/2024 Active Amphetamine-Dextroamphetam ine 5 MG 1 tablet Orally once a day for 30 days As needed in the afternoon 07/23/2024 Active Social History Tobacco Use: Social History Observation Description Date Details (start date - stop date) Never Smoker NA - NA Sex Assigned At : Social History Observation Description Sex Assigned At Female Tobacco Control (Standard) Question Answer Notes Tobacco use: Nonsmoker AUDIT-C (Standard) Question Answer Notes Points 1 Did you have a drink contain ing alcohol in the past year? Yes How often did you have six o r more drinks on one occasion in the past year? Never (0 point) How many drinks did you have on a typical day when you were drinking in the past year? 1 or 2 drinks (0 point) How often did you have a dri nk containing alcohol in the past year? Monthly or less (1 point) Problems Problem Type SNOMED Code ICD Code Onset Dates Problem Status W/U Status Risk Notes Problem Attention deficit hyperactivity disorder (860508020) Attention deficit hyperactivity disorder (ADHD), combined type (F90.2) Active confirmed Vital Signs Heart Rate 79 /min 06/24/2024 Height-cm 170.18 cm 06/24/2024 Blood pressure diastolic 87 mm Hg 06/24/2024 Weight-kg 101.15 kg 06/24/2024 Height 67 in 06/24/2024 Blood pressure systolic 150 mm Hg 06/24/2024 Weight 223 lbs 06/24/2024 BMI 34.92 kg/m2 06/24/2024 Encounters Encounter Location Date Provider Diagnosis [place] [address] [facility] [address] [address] 03/09/2024 Thena Billy Attention deficit hyperactivity disorder (ADHD), combined type F90.[address] [address] 03/23/2024 Dennis Link ADHD F90.[address] [address] 04/07/2024 Sarina Latricia Attention deficit hyperactivity disorder (ADHD), combined type F90.[address] [address] 04/28/2024 Sarina Latricia Attention deficit hyperactivity disorder (ADHD), combined type F90.[address] [address] 06/24/2024 Sarina Latricia Attention deficit hyperactivity disorder (ADHD), combined type F90.[address] [address] 07/23/2024 Sarina Latricia Attention deficit hyperactivity disorder (ADHD), combined type F90.[address] [address] 06/16/2024 Thena Billy Attention deficit hyperactivity disorder (ADHD), combined type F90.2 Assessments Encounter Date Diagnosis (ICD Code) Assessment Notes Treatment Notes Treatment Clinical Notes Section Notes 04/07/2024 Attention deficit hyperactivity disorder (ADHD), combined type (ICD-10 - F90.2) 04/28/2024 Attention deficit hyperactivity disorder (ADHD), combined type (ICD-10 - F90.2) Start Adderall IR for breakthrough symptoms in the afternoon. Continue Adderall XR 15mg qAM. Patient educated on all medications including potential benefits, side effects, risks. Educated on proper dosing schedule and importance of compliance. [place] report checked and consistent with prescription history, no controlled substance prescriptions from other providers. 06/16/2024 Attention deficit hyperactivity disorder (ADHD), combined type (ICD-10 - F90.2) 06/24/2024 Attention deficit hyperactivity disorder (ADHD), combined type (ICD-10 - F90.2) Increase Adderall XR 20mg daily for ADHD management. Patient educated on all medications including potential benefits, side effects, risks. Educated on proper dosing schedule and importance of compliance. [place] report checked and consistent with prescription history, no controlled substance prescriptions from other providers. 1. ADHD stable -Cont Adderall ER 20mg daily -cont Adderall 5mg PRN in afternoons. -UDT next apt 07/23/2024 Attention deficit hyperactivity disorder (ADHD), combined type (ICD-10 - F90.2) 03/09/2024 Attention deficit hyperactivity disorder (ADHD), combined type (ICD-10 - F90.2) will schedule for computerized adhd testing 03/23/2024 ADHD (ICD-10 - F90.9) 03/09/2024 Other Learning About Depression Screening material was printed Continue lamotrigine for seizure d/o, duloxetine for neuropathy 04/07/2024 Other ADHD evaluation reviewed-suggesti ve of diagnosis in conjunction with reported symptoms. Start Adderall XR 15mg daily for ADHD. Works 12 hours shifts, consider adding short acting stimulant if needed next apt. Patient educated on all medications including potential benefits, side effects, risks. Educated on proper dosing schedule and importance of compliance. [place] report checked and consistent with prescription history, no controlled substance prescriptions from other providers. Plan Of Treatment Pending Test Test Name Order Date UDT 03/23/2024 Next Appt Details Provider Name:Sarina Rome, 09/23/2024 08:15:00 AM, [address], [address], [place], [address], Insurance Providers Payer Name Payer Address Payer Phone Subscriber Number Group Number Insured Name Patient Relationship to Insured Coverage Start Date Coverage End Date [facility] [address] [address] [place] [address] [phone] [id number] Idalmis Bartholomew Self - patient is the insured Medical (General) History Medical History History ICD Code Past Psychiatric History: Anxiety Disord er abdominal aortic aneurysm: No atrial fibrillation: No chronic fatigue syndrome: No essential tremor: No hyperlipidemia: No hypertension: Yes Parkinson's disease: No restless leg syndrome: No stroke: No subdural hematoma: No type 1 diabetes mellitus: No type 2 diabetes mellitus: No vitamin B12 deficiency: No vitamin D deficiency: Yes
--- OUTSIDE RECORDS SUMMARY | 2024-09-02 11:19 | XMS_ITS | Encounter Summary ---
Author Organization [facility] Address [address] [place] [address]. [place] [address] [place] [address] Care Team Providers Care Property And Equipment Clerk Name Role Phone Ludivina Hogan Primary Care Provider [phone] Zay Altman MD Unavailable [phone] Akbar Bailey MD Unavailable [phone] Encounter Details Date Type Department Care Team (Late st Contact Info) Description 09/02/[address] [facility] Family and Sports Medicine - [place] [address] [place] [address] Ludivina Hogan APNP [address] [place] [address] Michelle Social History Tobacco Use Types Packs/Day Years [...] Sex Assigned at Female 08/24/2024 8:58 AM HARDWARE ENGINEERING MANAGER Legal Sex Female 7:09 PM CDT Gender [...] Assessment Author Status No 12/17/2018 12:38 PM BRET Estefania Alicia RN Active * Because of a physical, mental, or emotional condition, do you have difficulty doing errands alone such as visiting a doctor's office or shopping? Answer Date of Assessment Author Status No 12/17/2018 12:38 PM BRET Estefania Alicia RN Active documented as of [...] st Contact Info) Description 08/30/2025 8:30 AM HARDWARE ENGINEERING MANAGER Office Visit [facility], [address] [place], [place] [id number] Seymour Pino MD Three [facility]. [address] [place] [address] documented as of this encounter Visit Diagnoses Not on filedocumented in this encounter Additional Health Concerns Assessment Noted Time PHQ-9 Depression Total Score: 3 05/30/20 22 2:53 PM CDT documented as of this encounter Care Teams Property And Equipment Clerk Relationship Specialty Start Date End Date Ludivina Hogan APNP [address] [place] [address] PCP - General NURSE PRACTITIONER 10/07/17 Zay Altman MD [address] [place] [address] Surgeon NEUROLOGICAL SURGERY 12/09/18 Akbar Bailey MD [address] [place] [address] Consulting Physician Neurology Psychiatry 12/09/18 documented as of this encounter
--- OUTSIDE RECORDS SUMMARY | 2024-09-02 11:19 | XMS_ITS | Encounter Summary ---
Author Organization [facility] Address [address] [place] [address]. [place] [address] [place] [address] Care Team Providers Care Pharmacology Associate Name Role Phone Ludivina HoganBENNIE Primary Care Provider [phone] Zay Altman MD Unavailable [phone] Akbar Bailey MD Unavailable [phone] Encounter Details Date Type Department Care Team (Late st Contact Info) Description 03/22/[address] [facility] Multispecialty Care - [facility] 3 [facility], [address] [place] [phone] Kirill Robles MD 3 [facility] [address] [place], [place] [id number] Social History Tobacco Use Types Packs/Day Years Used Date Smoking Tobacco: Never Smokeless Tobacco: Never Alcohol Use Standard Drinks/Week Comments Yes 0 (1 standard drink = 0.6 oz pure alcohol) occasional, infrequent glass of wine PHQ-2 Answer Date Recorded PHQ-2 Score - If the patient scores above 3, please move on to questions 3-9 0 02/27/2022 Education Answer Date Recorded What is the highest level of school you have completed or the highest degree you have received? Associate degree: academic program 06/09/2018 Comments No Sex and Gender Information Value Date Recorded Sex Assigned at Female 08/24/2024 8:58 AM HUMAN RESOURCES HR REPRESENTATIVE Legal Sex Female 7:09 PM CDT Gender Identity Not on file Sexual Orientation Not on file Occupation Industry Job Start Date Job End Date Registered Nurse Not on file Not on file Not on file COVID-19 Exposure Response Date Recorded In the last 10 days, have yo u been in contact with someone who was confirmed or suspected to have Coronavirus/COVID-19? No / Unsure 03/14/2022 12:18 PM CDT documented as of this encounter Functional [...] Assessment Author Status Yes 12/17/2018 12:38 PM BRET Estefania Alicia RN Active * Do you [...] st Contact Info) Description 08/30/2025 8:30 AM HUMAN RESOURCES HR REPRESENTATIVE Office Visit [facility] THREE [facility], [address] [place] [address] Seymour Pino MD [facility]. [address] [place] [address] documented as of this encounter Visit Diagnoses Not on filedocumented in this encounter Additional Health Concerns Assessment Noted Time PHQ-9 Depression Total Score: 1 05/10/20 21 8:33 AM CDT documented as of this encounter Care Teams Pharmacology Associate Relationship Specialty Start Date End Date Ludivina Hogan APNP [address] [place] [address] PCP - General NURSE PRACTITIONER 10/07/17 Zay Altman MD [address] [place] [address] Surgeon NEUROLOGICAL SURGERY 12/09/18 Akbar Bailey MD [address] [place] [address] Consulting Physician Neurology Psychiatry 12/09/18 documented as of this encounter
--- OUTSIDE RECORDS SUMMARY | 2024-09-02 11:19 | XMS_ITS | Encounter Summary ---
Author Organization [facility] Address [address] [place] [address]. [place] [address] [place] [address] Care Team Providers Care Dental Office Coordinator Name Role Phone GriffinLudivina maddox KADEN Primary Care Provider [phone] Zay Altman MD Unavailable [phone] Akbar Bailey MD Unavailable [phone] Encounter Details Date Type Department Care Team (Late st Contact Info) Description 11/05/2023 [facility] Message Enc [facility] Medical Group Pediatrics . [place] [address] [place] [address] [facility] Provider Schedule Appointment: Overdue Physical Social History Tobacco Use Types Packs/Day Years [...] Sex Assigned at Female 08/24/2024 8:58 AM GRAPHICS PROGRAMMER Legal Sex Female 7:09 PM CDT Gender [...] Status Yes 12/17/2018 12:38 PM CDT Estefania Alciia RN Active * Do you have difficulty [...] st Contact Info) Description 08/30/2025 8:30 AM GRAPHICS PROGRAMMER Office Visit [facility] THREE [facility], [facility] [address] [place], [place] [phone] Seymour Pino MD Three [facility] [place] [facility]. [facility] [address] [place], [place] [id number] documented as of this encounter Visit Diagnoses Not on filedocumented in this encounter Additional Health Concerns Assessment Noted Time PHQ-9 Depression Total Score: 3 05/30/20 22 2:53 PM CDT documented as of this encounter Care Teams Dental Office Coordinator Relationship Specialty Start Date End Date Ludivina Hogan APNP [address] [place] [address] PCP - General NURSE PRACTITIONER 10/07/17 Zay Altman MD [address] [place] [address] Surgeon NEUROLOGICAL SURGERY 12/09/18 Akbar Bailey MD [address] [place] [address] Consulting Physician Neurology Psychiatry 12/09/18 documented as of this encounter
--- OUTSIDE RECORDS SUMMARY | 2024-09-02 11:19 | XMS_ITS | Encounter Summary ---
Author Organization [facility] Address [address] [place] [address]. [place] [address] [place] [address] Care Team Providers Care Percussion Tuner Name Role Phone Ludivina Hogan Primary Care Provider [phone] Zay Altman MD Unavailable [phone] Akbar Bailey MD Unavailable [phone] Encounter Details Date Type Department Care Team (Late st Contact Info) Description 01/10/2023 MyCConjectat Message Enc [facility] Medical [facility] Family and Sports Medicine - [place] [address] [place] [address] Ludivina Hogan APNP [address] [place] [address] Refills Social History Tobacco Use Types Packs/Day Years [...] Sex Assigned at Female 08/24/2024 8:58 AM CPHT Legal Sex Female 7:09 PM CDT Gender [...] st Contact Info) Description 08/30/2025 8:30 AM CPHT Office Visit [facility], [address] [place], [place] [phone] Seymour Pino MD Three [facility]. [address] [place] [address] documented as of this encounter Visit Diagnoses Not on filedocumented in this encounter Additional Health Concerns Assessment Noted Time PHQ-9 Depression Total Score: 3 05/30/20 22 2:53 PM CDT documented as of this encounter Care Teams Percussion Tuner Relationship Specialty Start Date End Date Ludivina Hogan APNP [address] [place] [address] PCP - General NURSE PRACTITIONER 10/07/17 Zay Altman MD [address] [place] [address] Surgeon NEUROLOGICAL SURGERY 12/09/18 Akbar Bailey MD [address] [place] [address] Consulting Physician Neurology Psychiatry 12/09/18 documented as of this encounter
--- OUTSIDE RECORDS SUMMARY | 2024-09-02 11:19 | XMS_ITS | Encounter Summary ---
Author Organization [facility] Address [address] [place] [address]. [place] [address] [place] [address] Care Team Providers Care Film Historian Name Role Phone Ludivina Hogan Primary Care Provider [phone] Zay Altman MD Unavailable [phone] Akbar Bailey MD Unavailable [phone] Encounter Details Date Type Department Care Team (Late st Contact Info) Description 07/08/2023 Airpusht Message Enc [facility] Family and Sports Medicine - [place] [address] [place] [address] Ludivina Hogan APNP [address] [place] [address] Phone number Social History Tobacco Use Types Packs/Day Years [...] Sex Assigned at Female 08/24/2024 8:58 AM VALET ATTENDANT Legal Sex Female 7:09 PM CDT Gender [...] st Contact Info) Description 08/30/2025 8:30 AM VALET ATTENDANT Office Visit [place] [facility] THREE [facility], [address] [place], [place] [id number] Seymour Pino MD Three [facility]. [address] [place] [address] documented as of this encounter Visit Diagnoses Not on filedocumented in this encounter Additional Health Concerns Assessment Noted Time PHQ-9 Depression Total Score: 3 05/30/20 22 2:53 PM CDT documented as of this encounter Care Teams Film Historian Relationship Specialty Start Date End Date Ludivina Hogan APNP [address] [place] [address] PCP - General NURSE PRACTITIONER 10/07/17 Zay Altman MD [address] [place] [address] Surgeon NEUROLOGICAL SURGERY 12/09/18 Akbar Bailey MD [address] [place] [address] Consulting Physician Neurology Psychiatry 12/09/18 documented as of this encounter
--- OUTSIDE RECORDS SUMMARY | 2024-09-02 11:19 | XMS_ITS ---
Author Organization [facility] Address [address] [place] [address] Care Team Providers Care Overage Shortage And Damage Clerk Name Role Phone Ludivina Bond Primary Care Provider Unavail able Sarina Rome Unavailable [phone] REASON FOR VISIT New Refill Request Medications Medication SIG (Take, Route, Frequency, Duration) Notes Start Date End Date Status Amphetamine-Dextroamphet ER 20 MG 1 capsule in the morning Orally Once a day for 30 days 07/23/2024 Active Amphetamine-Dextroamphetam ine 5 MG 1 tablet Orally once a day for 30 days As needed in the afternoon 07/23/2024 Activ e Social History Sex Assigned At : Social History Observation Description Sex Assigned At Female Encounters Encounter Location Date Provider Diagnosis [facility] [employer] [place] [address] [facility] [address] [facility] [address] [place] [address] 07/23/2024 Sraina Rome Attention deficit hyperactivity disorder (ADHD), combined type F90.2 Assessments Encounter Date Diagnosis (ICD Code) Assessment Notes Treatment Notes Treatment Clinical Notes Section Notes 07/23/2024 Attention deficit hyperactivity disorder (ADHD), combined type (ICD-10 - F90.2) Plan Of Treatment Medication Medication Name Sig Start Date Stop Date Notes Amphetamine-Dextroamphet ER 20 MG 1 capsule in the morning Orally Once a day for 30 days 07/23/2024 Amphetamine-Dextroamphetamin e 5 MG 1 tablet Orally once a day for 30 days 07/23/2024 Next Appt Details Provider Name:Sarina Rome, 09/23/2024 08:15:00 AM, [address], [address], [place], [address], Progress Notes * Idalmis BARTHOLOMEWDOB: 2 (54 yo F)Acc No.[id number]:07/23/2024 Patient:Idalmis MORGAN :1970???Age:54 Y???Sex:Female Phone: Address:[address] [place] [address], [place], [address] * Refills? Refill Amphetamine-Dextroamphet ER Capsule Extended Release 24 Hour, 20 MG, Orally, 30, 1 capsule in the morning, Once a day, 30 days, Refills=0 Refill Amphetamine-Dextroamphetamine Tablet, 5 MG, Orally, 30, 1 tablet, once a day, 30 days, Refills=0 Subjective: * Chief Complaints: * ???New Refill Request * Medical History:? * Surgical History:? * Hospitalization/Major Diagno stic Procedure:? * Medications:? Objective: * Vitals:? * Physical Examination:? Assessment: * Assessment: 1.?Attention deficit hyperac tivity disorder (ADHD), combined type - F90.2??? Plan: * Treatment: * Procedure Codes:?ERX CONTROL LED SUBSTANCE ERX * * Date:?
--- OUTSIDE RECORDS SUMMARY | 2024-09-02 11:19 | XMS_ITS ---
Author Organization [facility] Address [facility] [facility] [address] [facility] [address] [place] [address] Care Team Providers Care Construction Rigger Name Role Phone Ludivina Bond Primary Care Provider Unavail Sarina Rawls Unavailable [phone] Nigel Cervantes Unavailable [phone] REASON FOR VISIT Adderall Refill Medications Medication SIG (Take, Route, Frequency, Duration) Notes Start Date End Date Status Amphetamine-Dextroamphet ER 15 MG 1 capsule in the morning Orally Once a day for 30 days 06/17/2024 Active Social History Sex Assigned At : Social History Observation Description Sex Assigned At Female Encounters Encounter Location Date Provider Diagnosis [facility] [employer] [place] [id number] [facility] [address] [facility] [address] [place] [address] 06/16/2024 Nigel Cervantes Attention deficit hyperactivity disorder (ADHD), combined type F90.2 Assessments Encounter Date Diagnosis (ICD Code) Assessment Notes Treatment Notes Treatment Clinical Notes Section Notes 06/16/2024 Attention deficit hyperactivity disorder (ADHD), combined type (ICD-10 - F90.2) Plan Of Treatment Medication Medication Name Sig Start Date Stop Date Notes Amphetamine-Dextroamphet ER 15 MG 1 capsule in the morning Orally Once a day for 30 days 06/17/2024 Next Appt Details Provider Name:Sarina Rome, 09/23/2024 08:15:00 AM, [address], [facility] [address], [place], [address], Progress Notes * SHERIdalmisDOB: 2 (54 yo F)Acc No.[id number]:06/16/2024 Patient:?Idalmis BARTHOLOMEW :1970???Age:54 Y???Sex:Female Phone: Address:[address] [place] [address], [place], [address] * Refills? Refill Amphetamine-Dextroamphet ER Capsule Extended Release 24 Hour, 15 MG, Orally, 30 Capsule, 1 capsule in the morning, Once a day, 30 days, Refills=0 Subjective: * Chief Complaints: * ???Adderall Refill * Medical History:? * Surgical History:? * Hospitalization/Major Diagno stic Procedure:? * Medications:? Objective: * Vitals:? * Physical Examination:? Assessment: * Assessment: 1.?Attention deficit hyperac tivity disorder (ADHD), combined type - F90.2??? Plan: * Treatment: * Procedure Codes:?ERX CONTROL LED SUBSTANCE ERX * true * Date:? Generated for Warner aguero/Edwin/eTpearlsmitting on:?09/02/2024 11:19 AM HOTEL DINING ROOM CASHIER
--- OUTSIDE RECORDS SUMMARY | 2024-09-02 11:19 | XMS_ITS ---
Author Organization [facility] [employer] Address [address] [facility] [[email or web address]] [address] [place] [address] Care Team Providers Care Header Dock Name Role Phone Ludivina Bond Primary Care Provider Unavail able Lyubov Rome Unavailable [phone] Allergies Allergen (clinical drug ingredient) Drug/Non Drug Allergy documented on EMR Reaction Allergy Type Onset Date Status nortriptyline Nortriptyline HCl Unknown Drug Allergy Active carbamazepine TEGretol Unknown Drug Allergy Act cassie topiramate Topamax Unknown Drug Allergy Active Substance with sulfonamide structure and antibacterial mechanism of action (substance) Sulfa Antibiotics Unknown Drug Allergy Active REASON FOR VISIT follow up Medications Medication SIG (Take, Route, Frequency, Duration) Notes Start Date End Date Status Baclofen 10 MG 1 tablet as needed O rally Twice a day Unknown Maxalt 10 MG 1 tablet Orally Once a day Unknown Aviane 0.1-20 MG-MCG 1 tablet Orally Onc e a day Unknown Amphetamine-Dextroamphetam ine 5 MG 1 tablet Orally once a day for 30 days As needed in the afternoon Active Amphetamine-Dextroamphet ER 20 MG 1 capsule in the morning Orally Once a day for 30 days Active Loratadine 10 MG 1 tablet Orally Once a day Unknown Alpha Lipoic Acid 200 MG 1 capsule Orall y Once a day Unknown Magnesium Glycinate 100 MG as directed Orally Unknown Calcium Citrate 950 (200 Ca) MG 1 tablet Orally Once a day Unknown Flaxseed Oil 1000 MG as directed Orally Unknown B-12 1000 MCG 1 tablet under the t ongue and allow to dissolve Sublingual Once a day Unknown B-6 100 MG 1 tablet Orally Once a day Unknown Vitamin D2 50 MCG (2000 UT) 1 tablet Orally Once a day Unknown Zinc 50 MG 1 tablet Orally Once a day Unknown Propranolol HCl 20 MG Oral for 90 Days Active DULoxetine HCl 30 MG Oral for 90 Days Active Pregabalin 100 MG Oral for 90 Days Active lamoTRIgine 100 MG Oral for 90 Days Active Social History Tobacco Use: Social History [...] Risk Notes Problem Attention deficit hyperactivity disorder ([id number]) Attention deficit hyperactivity disorder (ADHD), combined type (F90.2) Active confirmed Vital Signs Blood pressure systolic 150 mm Hg 06/24/20 24 Blood pressure diastolic 87 mm Hg 024 Heart Rate 79 /min 06/24/2024 Height 67 in 06/24/2024 Weight 223 lbs 06/24/2024 BMI 34.92 kg/m2 06/24/2024 Height-cm 170.18 cm 06/24/2024 Weight-kg 101.15 kg 06/24/2024 Encounters Encounter Location Date Provider Diagnosis [address] [address] 06/24/2024 Lyubov Rome Attention deficit hyperactivity disorder (ADHD), combined type F90.2 Assessments Encounter Date Diagnosis (ICD Code) Assessment Notes Treatment Notes Treatment Clinical Notes Section Notes 06/24/2024 Attention deficit hyperactivity disorder (ADHD), combined [...] 5mg PRN in afternoons. -UDT next apt Plan Of Treatment Medication Medication Name Sig Start Date Stop Date Notes Amphetamine-Dextroamphetamin e 5 MG 1 tablet Orally once a day for 30 days Amphetamine-Dextroamphet ER 20 MG 1 capsule in the morning Orally Once a day for 30 days Treatment Notes Assessment Notes Attention deficit hyperactiv ity disorder (ADHD), combined type Increase Adderall XR 20mg daily for ADHD management. Patient educated on all medications including potential benefits, side effects, risks. Educated on proper dosing schedule and importance of compliance. [place] PDMP report checked and consistent with prescription history, no controlled substance prescriptions from other providers. Next Appt Details Follow Up: 3 Months, Reason: stimulant follow up Provider Name:Lyubov Rome, 09/23/2024 08:15:00 AM, [address], [facility] [[email or web address]] [address], [place], [address], Progress Notes * Idalmis BARTHOLOMEWDOB: [birth year] (54 yo F)Acc No.[id number]:06/24/2024 Patient:?Idalmis BARTHOLOMEW Provider:?LYUBOV ROME HNP :1970???Age:54 Y???Sex:Female D ate:06/24/2024 Phone: Address:[address] [place] [address], [id number] Pcp:Ludivina SHIRLEY Subjective: * Chief Complaints: * ???Follow up * HPI: ???Depression Screening:?FREEMAN-7 (2018 Edition)?Feeling nervous, anxious, or on edge?Not at all,?Not being able to stop or control worrying?Not at all,?Worrying too much about different things?Not at all,?Trouble relaxing?Not at all,?Being so restless that it is hard to sit still?Not at all,?Becoming easily annoyed or irritable?Several days,?Feeling afraid as if something awful might happen?Not at all,?If you checked any problems, how difficult have they made it for you to do your work, take care of things at home, or get along with other people??Not difficult at all.?[place]-Suicide Severity Rating Scale:?Suicide Risk (CSRS-screener)?in the past one month Have you wished you were or wished you could go to sleep and not wake up??No,?in the past one month Have you actually had any thoughts of killing yourself??No,?Have you ever done anything, started to do anything, or prepared to do anything to end your life??No.?Depression screening:?PHQ-9?Little interest or pleasure in doing things?Not at all,?Feeling down, depressed, or hopeless?Not at all,?Trouble falling or staying asleep, or sleeping too much?Several days,?Feeling tired or having little energy?Several days,?Poor appetite or overeating?Several days,?Feeling bad about yourself or that you are a failure, or have let yourself or your family down?Not at all,?Trouble concentrating on things, such as reading the newspaper or watching television?Not at all,?Moving or speaking so slowly that other people could have noticed; or the opposite, being so fidgety or restless that you have been moving around a lot more than usual?Not at all,?Thoughts that you would be better off or of hurting yourself in some way?Not at all,?Total Score?3,?Interpretation?Minimal Depression.?Intervention?Depression Screening Findings?Negative,?Suicide Risk Assessment Performed?06/24/2024 csrs negative .?History of Presenting Problem:?Medication Side Effects?none?.?Anxiety?No history of anxiety disorder.?Depression?No history of depression.?Mood lability?no hx fermin.?Psychosis?no hx psychosis.?Suicidal ideation?denies.?ADHD?forgetful in daily activities, easily distracted by extraneous stimuli, loses things necessary for tasks or activities, fails to give close attention to details or makes careless mistakes in schoolwork, work, or other activities, has difficulty sustaining attention in tasks or play activity, often talks excessively, interrupts or intrudes on others.?Here for follow up. Adderall IR started last apt. Reports she is doing well. Her trip to [place] went well. Reports the Adderall is going okay . Has been taking the instant release tablets most days. Although is still struggling with initiating tasks and completing tasks.? Mood is good, not feeling depressed. Denies feeling anxious.? Appetite is good, feels she has been overeating since coming off of [facility].? Sleep is fair, has not been following consistant sleep schedule. Getting at [place] 6 hours nightly. 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 Medical hx:??seizures, neuropathy (s/p back injury from work), migraines ? Past psychiatric hx-??? Past [facility] admissions/IOP/PHP:? none Previous suicide attempts:??none Previous self-harming:??denies? Previous medications:??Michelle (initially worked). * ROS:?Cardiovascular:?Patient denies?chest pain, palpitations.?Psychiatric:?Patient denies?suicidal thoughts, fermin, psychosis, anxiety, depressed mood.?Patient complains of?difficulty concentrating.?Comments?See HPI for details.? * Medical History:? * Surgical History:? * Hospitalization/Major Diagno stic Procedure:? * Family History:?Father: juanito lindsey, None.?Maternal Aunt: None.?Maternal Uncle: None.?Paternal Aunt: None.?Paternal Uncle: None.?Mother: alive, None.?Paternal Grandfather: None.?Paternal Grandmother: None.?Maternal Grandfather: None.?Maternal Grandmother: None.?Brother: None.?Sister: None.?Son: None.?Daughter: None.?1 brother(s) . .? * Social History:?Tobacco Use:?Tobacco Control (Standard)?Tobacco use:?Nonsmoker.?Drug/Alcohol:?Drugs?Have you used drugs other than those for medical reasons in the past 12 months??No.?Do you smoke marijuana?: Denies. Do you drink alcohol?: Socially. AUDIT-C (Standard) Did you have a drink containing alcohol in the past year??Yes,?How often did you have six or more drinks on one occasion in the past year??Never (0 point),?How many drinks did you have on a typical day when you were drinking in the past year??1 or 2 drinks (0 point),?How often did you have a drink containing alcohol in the past year??Monthly or less (1 point),?Points?1.?Miscellaneous:?Occupation: Registered Nurse. Safety issues?Are there any firearms in the house??No.?Advance Care Planning?Are you your own decision-maker?Yes,?Do you have Power of Child Psychometrist for Health or Medical??No.?Social History:?Household?Marital Status:?Single,?Number of Adults in household:?1,?Number of Children in Household:?0,?Level of Education:?Professional Schools/Masters/PhD.? * Medications:?TakingAmphetami ne-Dextroamphetamine 5 MG Tablet 1 tablet Orally once a day As needed in the afternoonlamoTRIgine 100 MG Tablet Oral Pregabalin 100 MG Capsule Oral DULoxetine HCl 30 MG Capsule Delayed Release Particles Oral Propranolol HCl 20 MG Tablet Oral Amphetamine-Dextroamphet ER 15 MG Capsule Extended Release 24 Hour 1 capsule in the morning Orally Once a day Taking Amphetamine- Dextroamphetamine 5 MG Tablet 1 tablet Orally once a day As needed in the afternoonTaking lamoTRIgine 100 MG Tablet Oral Taking Pregabalin 100 MG Capsule Oral Taking DULoxetine HCl 30 MG Capsule Delayed Release Particles Oral Taking Propranolol HCl 20 MG Tablet Oral Taking Amphetamine-Dextroamphet ER 15 MG Capsule Extended Release 24 Hour 1 capsule in the morning Orally Once a day UnknownZinc 50 MG Tablet 1 tablet Orally Once a day Vitamin D2 50 MCG (2000 UT) Tablet 1 tablet Orally Once a day B-6 100 MG Tablet 1 tablet Orally Once a day B-12 1000 MCG Tablet Sublingual 1 tablet under the tongue and allow to dissolve Sublingual Once a day Flaxseed Oil 1000 MG Capsule as directed Orally Calcium Citrate 950 (200 Ca) MG Tablet 1 tablet Orally Once a day Magnesium Glycinate 100 MG Capsule as directed Orally Alpha Lipoic Acid 200 MG Capsule 1 capsule Orally Once a day Loratadine 10 MG Tablet 1 tablet Orally Once a day Aviane 0.1-20 MG-MCG Tablet 1 tablet Orally Once a day Maxalt 10 MG Tablet 1 tablet Orally Once a day Baclofen 10 MG Tablet 1 tablet as needed Orally Twice a day Medication List reviewed and reconciled with the patientUnknown Zinc 50 MG Tablet 1 tablet Orally Once a day Unknown Vitamin D2 50 MCG (2000 UT) Tablet 1 tablet Orally Once a day Unknown B-6 100 MG Tablet 1 tablet Orally Once a day Unknown B-12 1000 MCG Tablet Sublingual 1 tablet under the tongue and allow to dissolve Sublingual Once a day Unknown Flaxseed Oil 1000 MG Capsule as directed Orally Unknown Calcium Citrate 950 (200 Ca) MG Tablet 1 tablet Orally Once a day Unknown Magnesium Glycinate 100 MG Capsule as directed Orally Unknown Alpha Lipoic Acid 200 MG Capsule 1 capsule Orally Once a day Unknown Loratadine 10 MG Tablet 1 tablet Orally Once a day Unknown Aviane 0.1-20 MG-MCG Tablet 1 tablet Orally Once a day Unknown Maxalt 10 MG Tablet 1 tablet Orally Once a day Unknown Baclofen 10 MG Tablet 1 tablet as needed Orally Twice a day Medication List reviewed and reconciled with the patient * Allergies:?Sulfa Antibiotics TEGretolTopamaxNortriptyline HClno[Allergies Verified] Objective: * Vitals:?BP:150/87mm Hg, HR:7 9/min, Wt:223lbs, Wt-k.15 kg, Ht: 67 in, Ht- cm: 170.18 cm, BMI:34.92Index, Body Surface Area: 2.18. * Examination: ???Psychiatry: ?Appearance:?well-groomed.?Abnormal body movements:?none.?Affect / mood:?appropriate.?Attention:?good.?Attitude:?cooperative.?Homicidal ideation:?none.?Suicidal ideation:?none.?Degree of awareness of surroundings:?within normal limits.?Delusions:?no.?Hallucinations:?no.?Insight:?good.?Judgement:?good.?Orientation:?awake, alert and oriented x 3.?Perceptual disorders:?no perceptual disorder noted.?Psychomotor activity:?within normal range.?Speech / language:?normal rate, volume, and articulation (RVR), clear and coherent.?Thought content:?appropriate.?Thought process:?intact.? Assessment: * Assessment: 1.?Attention deficit hyperac tivity disorder (ADHD), combined type - F90.2 (Primary)??? 1. ADHD? stable? -Cont Adderall ER 20mg daily? -cont Adderall 5mg PRN in afternoons.? -UDT next apt Plan: * Treatment: * Procedure Codes:?69274 BEHAV ASSMT W/SCORE & DOCD/STAND [id number] CLIN DEPRESSION SCREEN [id number] VISIT COMPLEXITY INHERENT TO ONGOING CARE RELATED TO A PATIENT'S SINGLE, SERIOUS CONDITION OR A COMPLEX CONDITION * Preventive Medicine:? ??Counseling:?BP Management:?FIRST HYPERTENSIVE BP READING FOLLOW-UP PLAN:?Follow-up 1 month Follow up with your PCP,?LIFESTYLE RECOMMENDATION:?Lifestyle education, REFERRAL TO ALTERNATIVE / PRIMARY CARE PROVIDER:?Referral to general medical service ____.? * Follow Up:?3 Months (Reason: stimulant follow up) * Billing Information: * Visit Code:? 07391 OFFICE OUTPATIENT VISIT 25 MINUTES DETAILED HISTORY AND EXAM/MODERATE MEDICAL DECISION MAKING. * Procedure Codes:? 73411 BEHAV ASSMT W/SCORE & DOCD/STAND INSTRUMENT. G8431 CLIN DEPRESSION SCREEN DOC. G2211 VISIT COMPLEXITY INHERENT TO ONGOING CARE RELATED TO A PATIENT'S SINGLE, SERIOUS CONDITION OR A COMPLEX CONDITION. * RAFT PART ASSEMBLER Sign off status: Completed true * Provider:?MATIAS ADAMS Date:? Generated for Warner aguero/Edwin/Jordi on:?09/02/2024 11:19 AM AIRCRAFT PART ASSEMBLER History and Physical Notes * HPI (History of Present Illness) Category Sub-Category Detail Notes Category Not es History of Presenting Problem Anxiety No history of anxiety disorder Here for follow up. Adderall IR started last apt. Reports she is doing well. Her trip to [place] went well. Reports the Adderall is going okay . Has been taking the instant release tablets most days. Although is still struggling with initiating tasks and completing tasks. Mood is good, not feeling depressed. Denies feeling anxious. Appetite is good, feels she has been [facility] [employer]. Sleep is fair, has not been following consistant sleep schedule. Getting at [place] 6 hours nightly. 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 Medical hx: seizures, neuropathy (s/p back injury from work), migraines Past psychiatric hx- Past [facility] admissions/IOP/PHP: none Previous suicide attempts: none Previous self-harming: denies Previous medications: Michelle (initially worked) Depression screening PHQ-9 Little inte rest or pleasure in doing things: Not at all Feeling down, depressed, or hopeless: No t at all Trouble falling or staying asleep, or sl eeping too much: Several days Feeling tired or having little energy: S everal days Poor appetite or overeating: Several day s Feeling bad about yourself o r that you are a failure, or have let yourself or your family down: Not at all Trouble concentrating on thi ngs, such as reading the newspaper or watching television: Not at all Moving or speaking so slowly that other people could have noticed; or the opposite, being so fidgety or restless that you have been moving around a lot more than usual: Not at all Thoughts that you would be b leticia off or of hurting yourself in some way: Not at all Total Score: 3 Interpretation: Minimal Depression Intervention Depression Screening Findings: N egative Suicide Risk Assessment Performed: 06/24 csrs negative Depression Screening FREEMAN-7 (2018 Edition) [place] g nervous, anxious, or on edge: Not at all Not being able to stop or control worryi ng: Not at all Worrying too much about different things : Not at all Trouble relaxing: Not at all Being so restless that it is hard to sit still: Not at all Becoming easily annoyed or irritable: Se ver days Feeling afraid as if something awful jay ht happen: Not at all If you checked any problems, how difficult have they made it for you to do your work, take care of things at home, or get along with other people?: Not difficult at all [place]-Suicide Severity Rating Scale Suicide Risk (CSRS-screener) in the past one month Have you wished you were or wished you could go to sleep and not wake up?: No in the past one month Have y ou actually had any thoughts of killing yourself?: No ?Have you ever done anything , started to do anything, or prepared to do anything to end your life?: No Examination Category Sub-Category Detail Notes Category Not es Psychiatry Appearance: well-groomed Attitude: cooperative Psychomotor activity: within normal rang e Abnormal body movements: none Attention: good Degree of awareness of surroundings: wit hin normal limits Orientation: awake, alert and peter ented x 3 Affect / mood: appropriate Speech / language: normal rate, volume, and articulation (RVR), clear and coherent Insight: good Judgement: good Thought process: intact Thought content: appropriate Perceptual disorders: no perceptual diso rder noted Suicidal ideation: none Homicidal ideation: none Delusions: no Hallucinations: no
--- OUTSIDE RECORDS SUMMARY | 2024-09-02 11:19 | XMS_ITS | Clinical Summary ---
Author Organization [facility] Address [address] [place] [address]. [place] [address] [place] [address] Care Team Providers Care Drophammer Operator Name Role Phone Huey Hogan KADEN Primary Care Provider [phone] Zay Altman MD Unavailable [phone] Akbar Bailey MD Unavailable [phone] Allergies Active Allergy Reactions Criticality Noted Date Comments Carbamazepine Dizziness 06/22/2014 Tegretol knocks her equilibrium out. Has to crawl on floor after taking it Nortriptyline Other (see comment) 08/18/2015 Idiosyncratic reaction, excessive sweating, mouth dryness, texture of hair changed, facial flushing Sulfa Antibiotics Hives,Rash,Itching Low 07/11/2008 Says her mom is allergic to sulfa. Says she has been told for years she has this allergy also Topiramate Other (see comment) 06/22/2014 14 adverse reactions Medications cetirizine 10 MG tablet Take 1 tablet (10 mg total) by mouth nightly. Active Cyanocobalamin (B-12) 250 MCG TabIndications:Lo w serum vitamin B12 Take 250 mcg by mouth daily. 30 tablet 020 Active Additional Information Patient taking differently: 500 mcgOral Daily, Reported on 08/24/2024 rizatriptan 10 MG disintegrating tabletIndications :Periodic headache syndrome, not intractable DISSOLVE 1 TABLET ON THE TONGUE AT ONSET OF HEADACHE, MAY REPEAT EVERY 2 HOURS NEEDED ; MAX 3 TABLETS IN 24 HOURS 30 tablet 3 021 Active butalbital-acetam inophen-caffeine 50-300-40 MG capsuleIndication s:Headache Take 1 capsule by mouth daily as needed. Indications: Headache 90 capsule 021 Active famotidine (PEPCID) 20 MG tabletIndications :Abdominal bloating Take 1 tablet (20 mg total) by mouth 2 (two) times daily as needed for Heartburn. 022 Active pyridoxine (VITAMIN B-6) 100 MG tablet Take 1 tablet (100 mg total) by mouth daily. Active Calcium Citrate 250 MG Tab Take 1,000 mg by mouth. Active Cholecalciferol (VITAMIN D3) 20 MCG (800 UNIT) Tab Take 2,400 Units by mouth. Active dicyclomine (BENTYL) 20 MG tabletIndications :Abdominal cramping Take 1 tablet (20 mg total) by mouth every 6 (six) hours as needed (stomach pain). 20 tablet 023 Active zinc gluconate 50 MG Tab Take 1 tablet (50 mg total) by mouth daily. Active Alpha Lipoic Acid 200 MG Cap Active baclofen (LIORESAL) 10 MG tabletIndications :Back strain, sequela TAKE 1 TABLET BY MOUTH EVERY NIGHT NEEDED FOR MUSCLE SPASMS 90 tablet 3 024 Active pregabalin (LYRICA) 100 MG capsuleIndication s:Nerve pain Take 1 capsule (100 mg total) by mouth 2 (two) times daily. 180 capsule 2 024 Active Flaxseed, Linseed, (FLAX SEED OIL) 1000 MG capsule Take 1,000 mg by mouth daily. Active loratadine (CLARITIN) 10 MG tablet Take 1 tablet (10 mg total) by mouth daily. Active Magnesium Glycinate 100 MG Cap as directed Orally Active traMADol (ULTRAM) 50 MG tabletIndications :Chronic Pain Take 1 tablet (50 mg total) by mouth 2 (two) times daily as needed for Pain. Indications: Chronic Pain 60 tablet 2 024 Active ondansetron (ZOFRAN) 4 MG tabletIndications :Nausea Take 1 tablet (4 mg total) by mouth every 8 (eight) hours as needed for Nausea. 20 tablet 2 024 Active propranolol (INDERAL) 20 MG tabletIndications :Palpitations TAKE 1 TABLET BY MOUTH TWICE DAILY 180 tablet 3 024 Active lamoTRIgine (LAMICTAL) 100 MG tabletIndications :Seizure (CMS/HCC HHS/HCC) TAKE 1 TABLET BY MOUTH EVERY NIGHT AT BEDTIME 90 tablet 3 024 Active levonorgestrel-et hinyl estradiol (FALMINA) 0.1-20 MG-MCG tabletIndications :Encounter for surveillance of contraceptive pills Take 1 tablet by mouth daily. 84 tablet 3 024 Active eszopiclone (LUNESTA) 1 MG tabletIndications :Insomnia, unspecified type TAKE 1 TABLET BY MOUTH EVERY NIGHT AT BEDTIME 90 tablet 024 Active DULoxetine (CYMBALTA) 30 MG capsuleIndication s:Chronic low back pain without sciatica, unspecified back pain laterality TAKE 1 CAPSULE BY MOUTH DAILY 90 capsule 3 025 Active amphetamine-dextr oamphetamine XR (ADDERALL XR) 20 MG 24 hr capsule take 1 capsule by mouth daily in the morning 024 Active amphetamine-dextr oamphetamine (ADDERALL) 5 MG tablet TAKE 1 TABLET BY MOUTH DAILY IN THE AFTERNOON NEEDED Active amphetamine-dextr oamphetamine XR (ADDERALL XR) 15 MG 24 hr capsule Take 1 capsule (15 mg total) by mouth every morning. 024 2024 Discontinued(D ose adjustment) DULoxetine (CYMBALTA) 30 MG capsuleIndication s:Chronic low back pain without sciatica, unspecified back pain laterality Take 1 capsule (30 mg total) by mouth daily. 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, not intractable, without status epilepticus ([facility]) 12/01/2020 Lumbar disc herniation 12/17/2018 Lumbar radiculopathy 12/17/2018 S/P lumbar laminectomy 12/17/2018 Foraminal stenosis of lumbosacral region 019 S/P lumbar discectomy 12/17/2018 Facet hypertrophy of lumbar region 12/17/2018 Lumbar stenosis 12/17/2018 Spinal stenosis of lumbar re gion without neurogenic claudication 12/08/2018 Arthropathy of right sacroiliac joint 11/25/2018 Arthropathy of left sacroiliac joint 11/25/2018 Benign fundic gland polyps of stomach 10/23/2018 Hepatic lesion 09/22/2018 Radiculopathy, lumbar region 06/09/2018 Disorder of intervertebral disc 05/18/2018 Plantar fasciitis 10/07/2017 Prediabetes 10/07/2017 Anxiety 10/01/2017 Hypertension 10/01/2017 Seizure ([facility]) 10/01/2017 Uterine myoma 05/31/2011 Overview (09/16/2018): Overview: Small fibroid seen during [facility] Migraine 07/11/2008 Melanoma ([facility]) 01/09/2007 Nocturnal seizures ([facility]) 03/11/1990 Palpitations Seizures ([facility]) Overview (07/17/2021): grand mal sz 17-30's. now partial simple sz. sleep related. tics at times. now controlled with lamictal. GERD (gastroesophageal reflux disease) Claudication Cancer ([facility]) Overview (07/17/2021): Melanoma Resolved Problems Problem Noted Date Diagnosed Date Resolved Date COVID-19 virus infection 12/27/201908/2021 Suture check 01/19/2019 12/27/2019 Spasm of right piriformis muscle 11/25/2018 12/27/2019 Spasm of left piriformis muscle 11/25/2018 12/27/2019 Back strain 05/13/2018 12/27/2019 Low back pain 10/07/2017 11/25/2018 Sacroiliac joint pain 10/07/20172018 Other muscle spasm 10/07/2017 0 Sciatic pain 10/01/2017 11/25/2018 Encounters Date Type Department Care Team Description 08/24/2024 9:00 AM CONCERT MANAGER Office Visit [facility], [address] [address] Linda Villalobos PA Palpitations (Annual) 08/24/2024 Travel from Last 3 Months Immunizations Name Administration Dates Next Due Fluzone 6 Months+ Quad (0.5 mL Prefilled Syringe) 04/11/2020,06/16/2019 Influenza (Generic) 06/16/2019, 8,04/15/2014, 013 Influenza Adult (Generic) 05/09/2021,05/11/2018 PFIZER COVID-19 (ORIGINAL FORMULATION, PURPLE CAP) mRNA, LNP-S, PF, 30 MCG/0.3 ML DOSE 05/09/2021,08/17/2020,07/27/2020 Tdap (Adacel) 04/14/2024 Family History Medical History Relation Comments Diabetes Brother type II Hypertension Brother spinal tumor Brother COPD Father lung fibrosis Cancer Father 4 kinds of cance r, meanoma, appendix cancer, neuro endocrin tumor, lymphoma Hypertension Father Kidney Disease Father Thyroid Disease Father appendix cancer Father lymphoma Father melanoma Father neuro endocrine tumor small intestine Father Early Maternal Grandfather Heart Disease Maternal Grandfather Hypertension Maternal Grandfather Arthritis Maternal Grandmother Heart Disease Maternal Grandmother Hypertension Maternal Grandmother Stroke Maternal Grandmother 4 leaky heart valves Mother Heart Disease Mother leaky heart valv e Hypertension Mother Thyroid Disease Mother Diabetes Paternal Grandfather Heart Disease Paternal Grandfather Hypertension Paternal Grandfather Heart Disease Paternal Grandmother Hypertension Paternal Grandmother Relation Status Comments Brother Alive Father Alive Maternal Grandfather Maternal Grandmother Mother Alive Paternal Grandfather Paternal Grandmother Social History Tobacco Use Types Packs/Day Years Used Date Smoking Tobacco: Never Smokeless Tobacco: Never Tobacco Cessation:Counseling Given: No Comments:na Alcohol Use Standard Drinks/Week Comments Yes 0 (1 standard drink = 0.6 oz pur e alcohol) Socially PHQ-2 Answer Date Recorded Patient Health Questionnaire-2 Score 1 04/14/2024 Education Answer Date Recorded What is the highest level of school you have completed or the highest degree you have received? Associate degree: academic program 06/09/2018 Comments No Sex and Gender Information Value Date Recorded Sex Assigned at Female 08/24/2024 8:58 AM CONCERT MANAGER Legal Sex Female 7:09 PM CDT Gender Identity Not on file Sexual Orientation Not on file Occupation Industry Job Start Date Job End Date Registered Nurse Not on file Not on file Not on file Last Filed Vital Signs Vital Sign Reading Time Taken Comments Blood Pressure 148/92 08/24/2024 8:58 AM CONCERT MANAGER Pulse 90 08/24/2024 8:58 AM CONCERT MANAGER Temperature 37 ??C (98.6 ??F) 04/14/2024 8:09 AM CDT Respiratory Rate 19 04/14/2024 8:09 AM CDT Oxygen Saturation 98% 08/24/2024 8:58 AM CONCERT MANAGER Inhaled Oxygen Concentration - - Weight 109.8 kg (242 lb) 08/24/2024 8:58 AM CONCERT MANAGER Height 170.2 cm (5' 7 ) 08/24/2024 8:58 AM CONCERT MANAGER Body Mass Index 37.9 08/24/2024 8:58 AM CONCERT MANAGER Plan of Treatment Upcoming Encounters Date Type Department Care Team (Late st Contact Info) Description 08/30/2025 8:30 AM CONCERT MANAGER Office Visit [facility], [facility] [address] [place], [place] [id number] Paola Degroot MD [facility]. [facility] [address] [place] [address] Health Maintenance Due Date Last Done Comments Colorectal Cancer Screening Colonoscopy (10 Years) 1972 Hepatitis B Vaccines (1 of 3 - 19+ 3-dose series) 1991 Cervical Cancer Screening Pap Smear (Age 30 to 64) Every 3 Years 09/06/2019 09/06/2016 Zoster Vaccines (1 of 2) 2022 Mammogram Screening 08/30/2023 08/30/2021, 07/11/2020, 06/21/2019, Additional history exists Cervical Cancer Screening Pap with HPV Testing (Age 30 to 64) Every 5 Years 10/31/2023 10/30/2018, 09/06/2016 Cervical Cancer Screening with HPV 10/31/2023 COVID-19 Vaccine ( season) 2024 05/09/2021, 08/17/2020, 07/27/2020 Influenza Adult (#1) 2024 05/09/2021, 04/11/2020, 06/16/2019, Additional history exists Annual Physical 04/14/2025 04/14/2024, 05/12, 05/10/2021, Additional history exists PHQ-2 (Physician [place]) 04/14/2025 04/14/2024 DTaP, Tdap and Td Vaccines (2 - Td or Tdap) 04/14/2034 04/14/2024 Hepatitis C Completed 04/11/2020 Meningococcal Vaccine Aged Out No june al eligible based on patient's age to complete this topic Pneumococcal Vaccine: Pediatrics (0 to 5 Years) and At-Risk Patients (6 to 64 Years) Aged Out No longer eligible based on patient's age to complete this topic RSV Immunizations Under 20 Months Aged Out No longer eligible based on patient's age to complete this topic Procedures Procedure Name Priority Date/Time Associated Diagnosis Comments ELECTROCARDIOGRAM (NON MIDMARK ACQUIRED) Routine 08/24/2024 9:07 AM CONCERT MANAGER Palpitations MG SCREENING W NINO LUIS MIGUEL DIGI Routine 08/30/2021 11:16 AM CONCERT MANAGER Healthcare maintenance Encounter for screening mammogram for malignant neoplasm of breast HEPATITIS C ANTIBODY Routine 04/11/2020 11:03 AM CDT Need for hepatitis C screening test OUTSIDE CYTOPATH CERV/VAG INTERPRET (PAP) 10/30/2018 from Last 3 Months or Most Recently Relevant to Health Maintenance Results * ELECTROCARDIOGRAM (08/24/2024 9:07 AM CONCERT MANAGER) 08/24/2024 9:07 AM CONCERT MANAGER Narrative [facility] - 08/24/2024 8:58 PM CONCERT MANAGER ?[facility], O? [place] ? Test Date: ?2024-08-24 Pat Name: ? IDALMIS BARTHOLOMEW ? Department: ?? 112 ? Room: ? Gender: ? Female ? Valet Runner: ?? : ?1970 ? Requested By: PAOLA DEGROOT Order Number: [id number] ?Reading MD: ?? Luis Eduardo Arciniega ? Measurements Intervals ?[place] ? Rate: ? 89 ? P: ?69 IA: ? 183 ?QRS: ?69 QRSD: ? 80 ? T: ?38 QT: ? 328 ? QTc: ?399 ? Interpretive Statements SINUS RHYTHM ERT MANAGER Procedure Note Luis Eduardo Arciniega MD - 08/24/2024 [facility], O? [facility] Test Date: 2024-08-24 Pat Name: IDALMIS BARTHOLOMEW Department: 112 Room: Gender: Female Valet Runner: : 1970 Requested By: PAOLA DEGROOT Order Number: [id number] Reading MD: Luis Eduardo Arciniega Measurements Intervals [place] Rate: 89 P: 69 IA: 183 QRS: 69 QRSD: 80 T: 38 QT: 328 QTc: 399 Interpretive Statements SINUS RHYTHM ERT MANAGER us Paola Degroot MD PROCEDURES-ORDERABLE NO TERENCE RGE Final Result [facility] * MG SCREENING W NINO LUIS MIGUEL DIGI (08/30/2021 11:16 AM CONCERT MANAGER) Anatomical Region Laterality Modality Breast Bilateral Mammography 08/30/2021 12:3 7 PM CONCERT MANAGER Impressions 08/31/2021 7:11 AM CONCERT MANAGER IMPRESSION: 1. No mammographic evidence of malignancy. ??Recommend annual mammogram. 2. BI-RADS Category 2 - benign findings. 3. TISSUE TYPE: Category C: The breasts are heterogeneously dense, which may obscure small masses. MQSA BI-RADS Categories: Category 0 - needs additional imaging evaluation. Category 1 - negative. Category 2 - benign findings. Category 3 - probably benign findings, but short interval follow-up ?is recommended. Category 4 - suspicious abnormality and biopsy should be considered ?though the lesion may well be benign. Category 5 - highly suggestive of malignancy and appropriate action ?should be taken. ?? A) ??A negative report should not delay a biopsy if a dominant or ?clinically suspicious mass is present. B) ??Adenosis and dense breasts may obscure an underlying neoplasm. C) ??Study interpreted with computer aided detection. Ordered By: HUEY HOGAN Interpreted By: Jimmy Davalos, 08/30/2021 12:37 PM Narrative 08/31/2021 7:11 AM CONCERT MANAGER IMAGING STUDIES: ??MG SCREENING W NINO LUIS MIGUEL DIGI ? DATE: ??08/30/2021 10:49 AM HISTORY: ??breast cancer screening ?51-year-old female for screening study. COMPARISON: Screening mammograms 07/11/2020, 06/21/2019, and 02/10/2018. DISCUSSION: Bilateral digital screening mammogram with CAD. ??Standard mammographic views. 2-D imaging and 3-D tomography. Heterogeneously dense and nodular fibroglandular tissue limiting sensitivity of mammography. Benign calcifications bilaterally. No mammographically suspicious mass, microcalcification, or architectural distortion. us Huey Hogan APNP MAMMO Final Result * HEPATITIS C ANTIBODY (NOT for WWD) (04/11/2020 11:03 AM CDT) HEPATITIS C AB NON-REACTI VE NON-REACTI VE 04/11/2020 7:44 PM CDT [facility] 04/11/2020 11:0 3 AM CDT Huey [facility] Final Result [facility] [address] [place] [address], * PAP SMEAR WITH HPV (10/30/2018) 10/30/2018 Narrative 10/30/2018 Ordered by an unspecified provider. Documents Scanned SCANNING Final Result from Last 3 Months or Most Recently Relevant to Health Maintenance Insurance R Advance Directives * Full Code (Latest Code Status on File) Date Activated Date Inactivated Comments 12/17/2018 12:40 PM 12/18/2018 3:04 PM Care Teams Drophammer Operator Relationship Specialty Start Date End Date Huey Hogan APNP [address] [place], [place] [phone] PCP - General NURSE PRACTITIONER 10/07/17 Zay Altman MD [address] [place] [address] Surgeon NEUROLOGICAL SURGERY 12/09/18 Akbar Bailey MD [address] [place] [address] Consulting Physician Neurology Psychiatry 12/09/18
--- OUTSIDE RECORDS SUMMARY | 2024-09-02 11:19 | XMS_ITS | Encounter Summary ---
Author Organization [facility] Address [address] [place] [address]. [place] [address] [place] [address] Care Team Providers Care Director Of Front Office Name Role Phone Ludivina Hogan Primary Care Provider [phone] Zay Altman MD Unavailable [phone] Akbar Bailey MD Unavailable [phone] Encounter Details Date Type Department Care Team (Late st Contact Info) Description 05/02/2024 [facility] Message Enc [facility] Family and Sports Medicine - [place] [address] [place] [address] Ludivina Hogan APNP [address] [place] [address] Lab results Social History Tobacco Use Types Packs/Day Years Used Date Smoking Tobacco: Never Smokeless Tobacco: Never Comments:na Alcohol Use Standard Drinks/Week Comments Yes 0 (1 standard drink = 0.6 oz pure alcohol) occasional, infrequent glass of wine PHQ-2 Answer Date Recorded Patient Health Questionnaire-2 Score 1 04/14/2024 Education Answer Date Recorded What is the highest level of school you have completed or the highest degree you have received? Associate degree: academic program 06/09/2018 Comments No Sex and Gender Information Value Date Recorded Sex Assigned at Female 08/24/2024 8:58 AM AUDIT PARTNER Legal Sex Female 7:09 PM CDT Gender [...] Status No 12/17/2018 12:38 PM CDT Estefania Ailcia RN Active * Because of a physical, [...] st Contact Info) Description 08/30/2025 8:30 AM AUDIT PARTNER Office Visit [facility], [address] [place] [address] Seymour Pino MD [facility]. [address] [place], [place] [id number] documented as of this encounter Visit Diagnoses Not on filedocumented in this encounter Additional Health Concerns Assessment Noted Time PHQ-9 Depression Total Score: 3 04/14/20 24 9:00 AM CDT documented as of this encounter Care Teams Director Of Front Office Relationship Specialty Start Date End Date Ludivina Hogan APNP [address] [place] [address] PCP - General NURSE PRACTITIONER 10/07/17 Zay Altman MD [address] [place] [address] Surgeon NEUROLOGICAL SURGERY 12/09/18 Akbar Bailey MD 7 [facility] [address] Consulting Physician Neurology Psychiatry 12/09/18 documented as of this encounter
== END 2024-08-30 03:56 | disposition home or self-care (01) ==
PROVIDERS: Emergency Provider Emergency Medicine; PCP Nurse Practitioner
DX: A05.9 Bacterial foodborne intoxication, unspecified (principal); D72.829 Elevated white blood cell count, unspecified; Z20.822 Contact with and (suspected) exposure to COVID-19
CPT/HCPCS: 36415; 80053; 83690; 83735; 85025; 87637; 96361; 96374; 99284; J2405; J7030

== ENCOUNTER 2024-11-25 11:44 | Outpatient (CLI) | payer OTHER, SELFPAY ==
--- NOTE | ~2024-11-25 | MM_ITS ---
EXAMINATION: MM screening karen BI w paul HISTORY: Screening TECHNIQUE: Craniocaudal and mediolateral oblique 3-D tomosynthesis images were obtained and synthetic 2-D images were generated. CAD analysis was submitted and interpreted. COMPARISON: No prior mammogram is available for comparison at this institution. BREAST PARENCHYMAL COMPOSITION: Not dense: There are scattered areas of fibroglandular density. FINDINGS: There are multiple focal asymmetries in the left breast. There is no evidence for malignanc y in the right breast. IMPRESSION: 1. Multifocal asymmetries left breast. 2. Comparison to previous outside mammograms recommended. BI-RADS Category 0: Incomplete: Needs additional imaging evaluation. Reviewed, dictated and finalized at location B.
== END 2024-11-25 11:45 | disposition home or self-care (01) ==
LOC: MICIMG 11:45
PROVIDERS: PCP Nurse Practitioner; Visit Provider Nurse Practitioner
DX: Z12.31 Encounter for screening mammogram for malignant neoplasm of breast (principal); N64.89 Other specified disorders of breast
CPT/HCPCS: 77063; 77067

== ENCOUNTER 2024-12-28 09:54 | Outpatient (CLI) | payer OTHER, SELFPAY ==
--- NOTE | ~2024-12-28 | MMUS_ITS ---
EXAMINATION: MM diagnostic karen LT w paul, US breast LT complete HISTORY: Follow-up left breast asymmetries TECHNIQUE: Additional 3-D tomosynthesis images of the left breast were performed and synthetic 2-D im ages were generated. CAD analysis was submitted and interpreted. High resolution left complete breast ultrasound was performed. COMPARISON: Comparison to multiple prior studies sequentially, with oldest reviewed study dated 10/2017. BREAST PARENCHYMAL COMPOSITION: Dense: The breasts are heterogeneously dense, which may obscure small masses FINDINGS: MAMMOGRAPHIC FINDINGS: There are no suspicious masses, calcifications or architectural distortion in the left breast to sugg est malignancy. ULTRASOUND: Complete US of all 4 quadrants of the left breast/s and retroareolar region was reviewed. At 12:00, 5 cm from the nipple there is an oval hypoechoic mass measuring 10 x 7 x 5 mm with circumscribed melvin ns, parallel orientation, no internal vascularity and no posterior features, likely benign. IMPRESSION: 1. Probable benign 1 cm left breast mass at 12:00, 5 cm from the nipple. 2. Recommend 6 month follow-up Limited left breast ultrasound BI-RADS category 3, probably benign findings. Reviewed, dictated and finalized at location B. IMPRESSION: 1. Probable benign 1 cm left breast mass at 12:00, 5 cm from the nipple. 2. Recommend 6 month follow-up Limited left breast ultrasound BI-RADS category 3, probably benign findings.
== END 2024-12-28 09:55 | disposition home or self-care (01) ==
LOC: MICIMG 09:55
PROVIDERS: PCP Nurse Practitioner; Visit Provider Nurse Practitioner
DX: N64.89 Other specified disorders of breast (principal); R92.8 Other abnormal and inconclusive findings on diagnostic imaging of breast
CPT/HCPCS: 76641; 77061; 77065; G0279

== ENCOUNTER 2025-08-06 04:41 | Emergency (ER) | payer OTHER, SELFPAY ==
--- NOTE | ~2025-08-06 | CT_ITS ---
CT abdomen pelvis w con Clinical History: abd distention/bloating; N, diarrhea, belching/gas . Comparison: None Technique: Axial images lung bases to symphysis pubis 100 mL Omnipaque 350 Coronal, sagittal reformats CT images acquired with automatic exposure control for dose reduction DLP: 1373 mGy-cm Findings: Lung bases: Clear. Visualized heart and pericardium: Unremarkable. Liver: Multiple small probable cysts. Gallbladder: Removed. Spleen: Unremarkable. Pancreas: Unremarkable. Adrenal glands: Unremarkable. Kidneys: Right kidney- No hydronephrosis. No renal stones. Left kidney- No hydronephrosis. No renal stones. Distal esophagus/stomach: Stomach moderately distended. Small bowel loops: Normal caliber and wall thickness. Liquid contents, air-fluid levels. Colon: Normal caliber and wall thickness. Normal RLQ appendix. Liquid contents, air-fluid levels. Nodes: No enlarged nodes. Small mediastinal nodes. Peritoneum: No ascites. No free air. Urinary bladder: Unremarkable. Uterus: Unremarkable. Adnexa: Left side enlarged. Bones: No acute bony abnormality. Soft tissues: Unremarkable. Aorta: No aneurysm or dissection. IVC: Unremarkable. Main portal vein/SMV/splenic vein: Patent. IMPRESSION: 1. Diarrheal state, without convincing evidence of superimposed enterocolitis. 2. Otherwise no acute inflammatory process. 3. Enlarged left adnexa. Recommend transvaginal sonography and/or pelvic MRI to exclude underlying lesion. Reviewed, dictated and finalized at location [facility]. S AND MERCHANDISING REPRESENTATIVE IMPRESSION: 1. Diarrheal state, without convincing evidence of superimposed enterocolitis. 2. Otherwise no acute inflammatory process. 3. Enlarged left adnexa. Recommend transvaginal sonography and/or pelvic MRI t o exclude underlying lesion.
[2025-08-06 04:46] VITALS: BP 143/86; PULSE 95; RESP 18; TEMP 36.6; O2SAT 100
[2025-08-06 05:04] VITALS: BP 167/92; PULSE 85; RESP 18; O2SAT 99
--- NOTE | 2025-08-06 05:24 | ED.NAVMDI ---
HPI - Nausea/Vomiting/Diarrhea General Chief complaint: Abdominal Pain Stated complaint: day 6 of bloating Time Seen by Provider: 08/06/25 05:14 Source: patient Mode of arrival: ambulatory Limitations: no limitations History of Present Illness HPI Narrative: Patient presents with 6 days of bloating and abdominal pain. She has had increased flatulence, belching, and gas. No recent travel or antibiotics. She has nausea but no vomiting. Decreased appetite. Last colonoscopy was some time after her cholecystectomy in 2009; she knows she is due for one. Mild gastroparesis history. Multiple episodes diarrhea. Symptoms have happened before. She previously followed with GI. Has been trialing Zofran, Bentyl, Gas X, Pepcid. Last dose before midnight. No fevers/chills. History of liver cysts/hemangiomas. She has also been experiencing vertigo for 2 days, particularly with closing her eyes or tilting her head back. feels a spinning sensation when opens eyes and leans to the right. This is not new, history of this. She is on lamictal for seizures (previously nocturnal, now focal), also metoprolol (for HTN), duloxetine, Lyrica. History of back injury/sciatica. PCP milton Leigh [employer] through [facility] [place] Related Data Allergies Allergy/AdvReac Type Severity Reaction Status Date / Time Sulfa (Sulfonamide Allergy Intermediate Hives Verified 08/06/25 04:42 Antibiotics) carbamazepine (From Tegretol) AdvReac Intermediate Other Verified 08/06/25 04:42 topiramate (From Topamax) AdvReac Intermediate Other Verified 08/06/25 04:42 nortriptyline AdvReac Unknown Verified 08/06/25 04:42 [facility] Past Medical History Medical History Vertigo Sciatica Back injury Obesity, Class II, BMI 35-39.9 Hypertension Seizure disorder previously nocturnal seizures, then focal Surgical History Surgical History History of colonoscopy 2009 or 2010 Hx of cholecystectomy 2009 Social History Social History Occupation/Education: occupation Additional occupation/education comments: RN at [employer] Exam Narrative: GENERAL: Well-appearing, well-nourished, and in no acute distress. HEAD: Normocephalic, atraumatic. EYES: Non injected, non icteric ENT: Nares clear, no rhinorrhea or epistaxis. Gross auditory acuity intact. NECK: Supple. No meningismus. CHEST: Speaking in full sentences. No respiratory distress. HEART: Regular rate and rhythm. . ABDOMEN: Morbidly obese but Soft, nondistended. No rigidity or guarding. Not peritoneal. no Tenderness to palpation throughout. EXTREMITIES: Normal range of motion. No lower extremity edema. SKIN: Warm, dry, no rash. NEURO: No focal deficits. Alert and oriented. Answering questions. Following commands. Normal speech without aphasia or dysarthria. PSYCH: Normal mood and affect. Course Vital Signs Vital signs: Vital Signs Temperature 97.9 F 08/06/25 04:46 Pulse Rate 95 08/06/25 04:46 Respiratory Rate 18 08/06/25 04:46 Blood Pressure 143/86 H 08/06/25 04:46 Pulse Oximetry 100 08/06/25 04:46 Oxygen Delivery Room Air 08/06/25 04:46 Temperature 97.9 F 08/06/25 04:46 Pulse Rate 85 08/06/25 08:53 Respiratory Rate 20 08/06/25 08:53 Blood Pressure 144/75 H 08/06/25 08:53 Pulse Oximetry 97 08/06/25 08:53 Oxygen Delivery Room Air 08/06/25 04:46 MDM MDM Narrative Medical decision making narrative: Patient presents with 6 days of bloating and abdominal pain associated with increased flatulence/eructation/gas and nausea as well as diarrhea In the emergency department she is afebrile vital signs notable for hypertension. Mild hypomagnesemia. Repletion ordered. CBC with mild abnormalities on the differential but otherwise without anemia thrombocytopenia or leukocytosis. Isolated alkaline phosphatase elevation which is new. Patient also has hypokalemia. Repletion ordered. Lipase normal. Urinalysis was abnormal specific gravity. There are bacteriuria but also with squamous cells. Also microscopic hematuria. She denies any dysuria urgency frequency or hematuria. I believe this is a contaminated specimen. Urine culture ordered but will defer antibiotics at this time. Shared decision making with the patient regarding this and she is in agreement verifies understanding. She is reassessed approximately 7:15 a.m. and reports that the pain comes and goes and is coming back again and described as cramping. Alvarezyl ordered. Discharged with prescriptions and advised to follow up with GI (as well as ObGyn referral given incidental CT finding). Differential Diagnosis Differential Diagnosis: The differential for acute ( less than 14d) diarrhea includes infectious etiologies (viral, preformed toxins, toxins formed after colonization, invasive bacteria, and parasites), medications, inflammatory causes (IBD, radiation enteritis, ischemic colitis, diverticulitis), malabsorption, secretory causes, or motility disorders. Other etiologies include GERD, gastritis , ulcers, pancreatitis, gastroparesis Medical Records I have reviewed the following patient records and this information was taken into consideration when formulating the assessment and plan.: previous labs and previous ER visits Lab Data MDM Lab Attestation statement: I personally reviewed the patient's lab results. 08/06/25 05:26 08/06/25 05:26 Labs: Lab Results 08/06/25 08/06/25 Range/Units 05:26 06:51 WBC 8.8 (4.5-10.0) K/mm3 RBC 4.96 (4.2-5.4) M/mm3 Hgb 15.0 (12.0-15.0) g/dL Hct 44.2 (37.0-47.0) % MCV 89.1 (80-100) fl MCH 30.2 (26-34) pg MCHC 33.9 (32-36) g/dl RDW 13.5 (11.5-14.5) % Plt Count 277 (150-375) k/mm3 MPV 10.3 (7.4-10.4) fl Immature Gran % (Auto) 0.2 (0-0.5) % Neut % (Auto) 67.6 (45.5-73.1) % Lymph % (Auto) 22.2 (18.3-44.2) % [place] % (Auto) 8.6 H (2.6-8.5) % Eos % (Auto) 1.3 (0-4.4) % Baso % (Auto) 0.1 L (0.2-1.2) % Lymph # (Auto) 1.95 (0.9-3.2) K/mm3 [place] # (Auto) 0.8 H (0.1-0.6) K/mm3 Eos # (Auto) 0.1 (0-0.3) K/mm3 Baso # (Auto) 0.0 (0.0-0.1) K/mm3 Abs Immat Gran (auto) 0.02 (0.00-0.031) K/mm3 Absolute Neuts (auto) 6.0 (1.3-6.7) K/mm3 Absolute Nucleated RBC 0.000 (0.0-0.012) K/mm3 Nucleated RBC % 0.0 (0.0-0.2) % Sodium 139 (137-145) mmol/L Potassium 3.1 L (3.4-5.0) mmol/L Chloride 106 (98-107) mmol/L Carbon Dioxide 25 (22-30) mmol/L Anion Gap 8 (4-12) mmol/L BUN 16 (7-17) mg/dL Creatinine 0.73 (0.7-1.0) mg/dL Estim Creat Clear Calc 98 ml/min Estimated GFR > 60 (59 - ) Glucose 98 (65-110) mg/dL Calcium 8.4 (8.4-10.2) mg/dL Magnesium 1.4 L (1.6-2.3) mg/dL Total Bilirubin 0.6 (0.2-1.3) mg/dL AST 27 (14-36) U/L ALT 23 (6-35) U/L Alkaline Phosphatase 159 H (38-126) U/L Total Protein 7.1 (6.3-8.2) g/dL Albumin 4.1 (3.5-5.1) g/dL Lipase 59 (23-300) U/L Urine Color Yellow (Yellow) Urine Appearance Clear (Clear) Urine pH 5.5 (5.0-9.0) Ur Specific [place] > 1.045 H (1.001-1.035) Urine Protein Trace (Negative) mg/dL Urine Glucose (UA) Negative (Negative) mg/dL Urine Ketones 1+ H (Negative) mg/dL Ur Blood (Man) Negative (Negative) Urine Nitrate Negative (Negative) Urine Bilirubin Negative (Negative) Urine Urobilinogen 0.2 (<2.0) mg/dL Add Ur Microanalysis Reviewed Leukocyte Esterase Rfl Negative (Negative) YAZ/UL Urine RBC 6-10 H (0-2) /hpf Urine WBC 0-5 (0-3) /hpf Ur Squamous Epith Cells Few (Few) /hpf Urine Bacteria 2+ H /hpf Urine Casts 0-2 Hyaline Casts Present (None) /lpf Urine Mucus Present /lpf Imaging Data Radiologist's impression: ITS Impressions Abdomen/Pelvis CT 08/06/25 07:57 IMPRESSION: 1. Diarrheal state, without convincing evidence of superimposed enterocolitis. 2. Otherwise no acute inflammatory process. 3. Enlarged left adnexa. Recommend transvaginal sonography and/or pelvic MRI to exclude underlying lesion. Discharge Plan Discharge Clinical Impression: Epigastric abdominal pain, Hypomagnesemia, Abdominal bloating, Flatulence, eructation and gas pain, Alkaline phosphatase elevation, Hypokalemia, Acute diarrhea, Abnormal CT scan, pelvis Patient Disposition: Home Condition: Stable Instructions: Antibiotic Form, Hypokalemia (ED), Acute Diarrhea (ED), Gas and Bloating (ED), Hypomagnesemia (ED), Epigastric Pain (ED) Additional Instructions: Your CT did not reveal a cause of your symptoms, only showed evidence of diarrhea. You can continue to use the Bentyl as it works on the smooth muscle of the GI tract. You can continue taking the other medications you have been using (Zofran, Gas X, Pepcid), etc. Refills have been provided if needed. CT incidentally also showed an Enlarged left adnexa. Recommend transvaginal sonography and/or pelvic MRI to exclude underlying lesion. Your PCP can help arrange this outpatient, or ObGyn. If you do not have one the name of a doctor is listed below. If you need a care associate for follow-up and/or to arrange your screening colonoscopy, the name of a doctor is listed below. Rest and maintain your hydration. Water is fine. You can supplement with Pedialyte/Gatorade (does not have be be name brand) if desired given your mildly low potassium and magnesium. Avoid milk or sugary juices. Given magnesium supplements can cause diarrhea, can consider food sources to replete. Examples include salmon, tofu, zoila seeds, bananas, black beans, spinach, cashews/cashew butter, oats, peanuts, potatoes with skins on, brown rice, soy milk, quinoa, kidney beans, whole wheat bread, avocado, raisins, pumpkin seeds, beet greens, dried prunes, white beans, almonds, chickpeas, etc. Patient Language: Monegasque Prescriptions: New dicyclomine 10 mg capsule 10 mg PO BID PRN (Reason: abdominal pain) Qty: 20 0RF alum-mag hydroxide-simeth [Maalox Advanced] 200-200-20 mg/5 mL suspension 15 ml PO QID PRN (Reason: indigestion) Qty: 3000 0RF Rx Instructions: administer between meals and at bedtime famotidine [Pepcid] 20 mg tablet 20 mg PO DAILY Qty: 30 0RF ondansetron 4 mg tablet,disintegrating 4 mg PO Q8H PRN (Reason: nausea and vomiting) Qty: 7 0RF No Action ondansetron 4 mg tablet,disintegrating 4 mg PO Q8H PRN (Reason: nausea and vomiting) Qty: 10 0RF Follow-up/Referrals: Ramirez Dewitt MD [Physician, Gastroenterology] Alexandria Middleton MD [Physician, [employer]] Edison,Milton Carlos NP [Primary Care Provider, Unknown] Stand Alone Forms: Work/School Release IP Time of Disposition: 08:25
[2025-08-06 05:34] LABS: Hematocrit 44.2 % (37.0-47.0); Hemoglobin 15.0 g/dL (12.0-15.0); Immature Granulocyte Percent A 0.2 % (0-0.5); Lymphocytes Absolute Auto 1.95 K/mm3 (0.9-3.2); Mean Corpuscular HGB Conc 33.9 g/dl (32-36); Mean Corpuscular Hemoglobin 30.2 pg (26-34); Mean Corpuscular Volume 89.1 fl (80-100); Nucleated Red Blood Cells Absolute Auto 0.000 K/mm3 (0.0-0.012); Nucleated Red Blood Cells Perc 0.0 % (0.0-0.2); Platelet Count Result 277 k/mm3 (150-375); Red Blood Count 4.96 M/mm3 (4.2-5.4); White Blood Count 8.8 K/mm3 (4.5-10.0)
[2025-08-06] MEDS: ONDANSETRON INJ 4 MG/2 ML VIAL IV PUSH (06:00)
[2025-08-06] MEDS: MORPHINE SULFATE (*CRX) 4 MG/ML INJ IV PUSH (06:00)
[2025-08-06 06:01] LABS: Alanine Aminotransferase 23 U/L (6-35); Albumin Level 4.1 g/dL (3.5-5.1); Alkaline Phosphatase 159 U/L (38-126); Anion Gap 8 mmol/L (4-12); Aspartate Amino Transferase 27 U/L (14-36); Bilirubin,Total 0.6 mg/dL (0.2-1.3); Blood Urea Nitrogen 16 mg/dL (7-17); Calcium 8.4 mg/dL (8.4-10.2); Carbon Dioxide 25 mmol/L (22-30); Chloride 106 mmol/L (98-107); Estimated CRCL calculation 98 ml/min; Estimated Glomerular Filt Rate > 60; Glucose 98 mg/dL (65-110); Lipase 59 U/L (23-300); Magnesium 1.4 mg/dL (1.6-2.3); Potassium 3.1 mmol/L (3.4-5.0); Sodium 139 mmol/L (137-145); Total Protein 7.1 g/dL (6.3-8.2)
[2025-08-06] MEDS: POTASSIUM BICARBONATE 25 MEQ TABEF 50 MEQ PO (06:53)
[2025-08-06] MEDS: MAGNESIUM SULF 1 GM/D5W 100 ML 1 GM/100 ML BAG IVPB (06:54)
[2025-08-06] MEDS: SIMETHICONE 125 MG CHEW TAB PO (06:55)
[2025-08-06 07:13] LABS: Add Urine Microscopic? YES; Appearance Urine Clear (Clear); Glucose Urine UA Negative (Negative); Leukocyte Esterase Ur Negative LEU/UL (Negative); Need Manual Microscopic Reviewed; Nitrate Urine Negative (Negative); Non Pathogenic Casts 0-2; Specific Grav Ur > 1.045 (1.001-1.035)
[2025-08-06 07:16] VITALS: BP 149/85; PULSE 103; RESP 18; O2SAT 100
--- NOTE | 2025-08-06 07:16 | PC.NURSE ---
Assumed pt care.
[2025-08-06] MEDS: DICYCLOMINE HCL 10 MG CAPSULE 20 MG PO (07:29)
[2025-08-06] MEDS: PANTOPRAZOLE 40 MG TABLET PO (08:28)
[2025-08-06 08:53] VITALS: BP 144/75; PULSE 85; RESP 20; O2SAT 97
== END 2025-08-06 08:56 | disposition home or self-care (01) ==
PROVIDERS: Emergency Provider Student in an Organized Health Care Education/Training Program; PCP Nurse Practitioner
DX: R10.13 Epigastric pain (principal); E83.42 Hypomagnesemia; E87.6 Hypokalemia; R19.7 Diarrhea, unspecified; R14.0 Abdominal distension (gaseous); R14.3 Flatulence; R14.1 Gas pain; R14.2 Eructation; R74.8 Abnormal levels of other serum enzymes; R93.5 Abnormal findings on diagnostic imaging of other abdominal regions, including retroperitoneum; I10 Essential (primary) hypertension; G40.109 Localization-related (focal) (partial) symptomatic epilepsy and epileptic syndromes with simple partial seizures, not intractable, without status epilepticus; E66.9 Obesity, unspecified; E66.812 Obesity, class 2; Z68.35 Body mass index [BMI] 35.0-35.9, adult; Z90.49 Acquired absence of other specified parts of digestive tract
CPT/HCPCS: 36415; 74177; 80053; 81001; 83690; 83735; 85025; 87086; 96365; 96375; 99284; A9270; J2270; J2405; J3475; Q9967